=== PATIENT | male | born 1945 | race Caucasian/White ===

== ENCOUNTER → 2019-10-01 13:13 | Outpatient (BNVA) | payer MEDICARE, OTHER, SELFPAY | PROVIDERS: Family Provider Family Medicine; PCP Family Medicine; Visit Provider Nurse Practitioner Family | DX: R35.1 Nocturia (principal); R39.9 Unspecified symptoms and signs involving the genitourinary system | CPT/HCPCS: 81001 ==

== ENCOUNTER → 2019-10-15 10:34 | Outpatient (BNVA) | payer MEDICARE, OTHER, SELFPAY | PROVIDERS: Family Provider Family Medicine; PCP Family Medicine; Visit Provider Urology | DX: R35.1 Nocturia (principal); R39.9 Unspecified symptoms and signs involving the genitourinary system; R39.15 Urgency of urination | CPT/HCPCS: 81001 ==

== ENCOUNTER 2020-07-22 09:16 | Outpatient (RCR) | payer MEDICARE, OTHER, SELFPAY | END 2020-08-08 23:59 | disposition home or self-care (01) | LOC: SOT 09:16 | PROVIDERS: Family Provider Family Medicine; PCP Family Medicine; Referring Provider Family Medicine; Visit Provider Family Medicine | DX: S67.21XD Crushing injury of right hand, subsequent encounter (principal) | CPT/HCPCS: 97110; 97165; L3925 ==

== ENCOUNTER 2020-08-09 06:00 | Outpatient (RCR) | payer MEDICARE, OTHER, SELFPAY | END 2020-08-14 23:00 | disposition home or self-care (01) | LOC: SOT 06:00 | PROVIDERS: Family Provider Family Medicine; PCP Registered Nurse; Referring Provider Family Medicine; Visit Provider Family Medicine | DX: S67.21XD Crushing injury of right hand, subsequent encounter (principal); X58.XXXD Exposure to other specified factors, subsequent encounter | CPT/HCPCS: 97110 ==

== ENCOUNTER 2020-10-07 07:54 | Outpatient (CLI) | payer MEDICARE, OTHER, SELFPAY ==
[2020-10-07 08:14] VITALS: BMI 26.2
--- NOTE | 2020-10-07 08:14 | ECG_ITS ---
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 The perfusion scan will be documented separately. DATA: Baseline heart rate was 54 beats per minute. Baseline blood pressure was 155/87 millimeters of mercury. Target heart rate was 145. Maximum heart rate achieved was 73. which was 50 % of the predicted target heart rate. Maximum blood pressure was 155/89 millimeters of mercury. The reason for ending the test was completion of the protocol. The patient did not experience any symptoms. ELECTROCARDIOGRAM: BASELINE: Sinus bradycardia. Left axis. Right bundle branch block, otherwise, no ST-T changes suggestive of ischemia noted. No arrhythmia noted. EXERCISE: After Lexiscan injection, no ST-T changes suggestive of ischemic noted. No arrhythmia noted. CONCLUSION: Please note due to baseline abnormality of the EKG specificity and sensitivity of the EKG portion of LexiScan MIBI stress test will be low 1. EKG not suggestive of ischemia 2. Lexiscan injection unremarkable. 3. Perfusion scan will be documented separately. Electronically Signed On 10-09-2020 17:51:18 CDT by EMMA BRIZUELA [id number]
--- NOTE | 2020-10-07 08:15 | NMCV_ITS ---
NM demetrio perf SPECT r/s* [id number] Burt Marinelli Age: 75 Gender: M : 1945 Exam Date: 10/07/2020 08:15 Ordering Phys: Emma Brizuela MD ([email or web address]) Technologist: LEESA Montaño Exam Location: [facility] Indications: SHORTNESS OF BREATH, CHEST PAIN STRESS TEST Please [facility] separate [facility] for full findings IMAGE PROTOCOL Rest/Stress 1 Lexiscan Day Radiopharmaceutical Dose (mCi) Administration Site Administered by Rest: Tc-99m 10.7 IV LEESA Cervantes Sestamibi Stress:Tc-99m 32.6 IV LEESA Cervantes Sestamibi Rest: 07-Oct-2020 60 Discovery 630 Stress: 07-Oct-2020 30 Discovery 630 0.4mg Lexiscan. Images obtained in supine and prone position. SPECT RESULTS Technical Quality: Excellent Raw Data Analysis: Normal Image Corrections: No attenuation or motion correction applied Summed Stress Score: 0 Summed Rest Score: 0 Summed Difference Score: 0 PERFUSION FINDINGS SPECT images demonstrate homogeneous tracer distribution throughout the myocardium. FUNCTIONAL RESULTS (calculated via Gated SPECT) Stress Image LV EF (%): 64 Stress EDV (mL):114 TID: 0.95 Stress ESV (mL):41 Rest Image LV EF (%): 64 FUNCTIONAL FINDINGS: There is normal left ventricular systolic function. IMPRESSIONS Myocardial perfusion imaging is normal. EKG segment will be documented separately. Emma Brizuela MD (Electronically Signed) Final Date: 07 October 2020 19:43 S
[2020-10-07] MEDS: regadenoson 0.4 Mg/5 ml Syringe IVP (09:46)
[2020-10-07 10:20] VITALS: BP 131/75; PULSE 63
== END 2020-10-07 07:55 | disposition home or self-care (01) ==
LOC: CDL 07:58
PROVIDERS: PCP Family Medicine; Visit Provider Internal Medicine Cardiovascular Disease
DX: R07.9 Chest pain, unspecified (principal); R06.02 Shortness of breath
CPT/HCPCS: 78452; 93017; A9500; J2785

== ENCOUNTER 2020-11-18 13:48 | Outpatient (CLI) | payer MEDICARE, OTHER, SELFPAY ==
--- NOTE | 2020-11-18 14:18 | MR_ITS ---
WS: [id number] MRI LEFT KNEE HISTORY: LEFT KNEE PAIN, recent injury. COMPARISON: None available. Anterior cruciate ligament: Intact. Posterior cruciate ligament: Intact. Medial collateral ligament: Fluid on both sides of the MCL but no tear. Posterior lateral corner structures: Intact. Medial menisci: Horizontal tear extends to the intra-articular surface of the posterior meniscus. Lateral meniscus: Intact. Normal signal, size and shape. Extensor mechanism: Distal quadriceps tendon and patellar tendons are intact. Fluid and soft tissue: Large suprapatellar joint effusion. There is a large amount of soft tissue ade ma surrounding the knee. Small Ferris's cyst. Osseous and articular structures: Patellofemoral compartment: Focal cartilage defect at the patellar eminence. No edema or fracture. Medial compartment: Mild narrowing of the medial compartment. Mild diffuse thinning and loss of carti dalia with mild narrowing of the joint space and osteophytes. Small amount of edema at the base of the medial tibial spine. Lateral compartment: Moderate amount of marrow edema involving the tibial plateau. There is a vertica l fracture extending from the mid tibial plateau inferiorly to the tibial metadiaphysis. Multiple sma ll bone fragments along the tibial plateau. Mild depression involving the mid tibial plateau with a f ocal full-thickness defect in the cartilage at the site of the fracture. Cartilage defect is 11 mm in the central tibial plateau. There is a small amount of edema in the anterior femoral condyle. There is a small concave defect and loss of the normal bony cortex consistent with acute fracture. MR/MR knee LT wo con* [id number] IMPRESSION: 1. Acute fracture with mild depression involving the lateral tibial plateau. V ertical fracture extends to the metadiaphysis of the tibia. Multiple osseous fr agments along the tibial plateau and cartilage defects. 2. Additional cortical fracture involving the anterior lateral femoral condyle . 3. Large suprapatellar joint effusion with soft tissue edema surrounding the k nee. 4. Small Ferris's cyst. 5. Horizontal tear posterior horn medial meniscus.
== END 2020-11-18 13:49 | disposition home or self-care (01) ==
PROVIDERS: PCP Family Medicine; Visit Provider Family Medicine
DX: M25.562 Pain in left knee (principal); S83.242A Other tear of medial meniscus, current injury, left knee, initial encounter; X58.XXXA Exposure to other specified factors, initial encounter; M71.22 Synovial cyst of popliteal space [Baker], left knee; M25.462 Effusion, left knee
CPT/HCPCS: 73721

== ENCOUNTER 2020-11-21 15:31 | Outpatient (CLI) | payer MEDICARE, OTHER, SELFPAY ==
--- NOTE | 2020-11-21 15:30 | USCV_ITS ---
Burt Marinelli Age: 75 Gender: M : 1945 Exam Date: 11/21/2020 15:49 Ordering Phys: Miguel Cortés MD Technologist: Lalitha Hagen [place]am Location[place] [facility] [place] Indication: LLE EDEMA HISTORY: Fall November 10, 2020 resulting in left tibial fracture. LLE swelling. Patient is on plavix PROCEDURES: On the left side, the common femoral, superficial femoral, profunda femoral, popliteal, posterior tibial, greater saphenous veins, and the peroneal trunk were identified and interrogated in the standard fashion. . FINDINGS: Thrombus is noted in left popliteal and left peroneal veins. Near complete occlusion and reduced flow. The remainder of the LLE appears normal. CONCLUSIONS There is evidence of acute left popliteal and peroneal vein deep venous thrombosis. Report called to Dr. Cortés. Dr. Cortés directed patient to ED. Dr. Jennifer Lara DO (Electronically Signed) Final Date: 21 November 2020 16:26 S
== END 2020-11-21 15:32 | disposition home or self-care (01) ==
PROVIDERS: PCP Family Medicine; Visit Provider Orthopaedic Surgery
DX: R60.9 Edema, unspecified (principal)
CPT/HCPCS: 93971

== ENCOUNTER 2020-11-21 16:32 | Emergency (ER) | payer MEDICARE, OTHER, SELFPAY ==
[2020-11-21 17:06] VITALS: BP 169/99; PULSE 70; RESP 15; TEMP 36.8; O2SAT 97; BMI 24.8
--- NOTE | 2020-11-21 17:23 | ED_ITS ---
HPI - Extremity Problem General: Chief complaint: Extremity Injury, Lower Stated complaint: Post Injury thrombus Time Seen by Provider: 11/21/20 17:23 History of Present Illness: HPI Narrative: 75-year-old male patient comes in today with complaints of swelling and redness to the left lower leg. Patient has a proximal tibial fracture. Incident occurred at the first of the month when his dog collided against him causing him to injure himself. For the last 4 days patient is reporting increased pain and discomfort in the calf of his leg. Patient had ultrasound today that showed a DVT in the left lower extremity. Patient was referred to the ER by his primary care provider to initiate anticoagulant therapy. Complaint: extremity swelling Review of Systems General: Reports: 10 or more systems reviewed and unremarkable except in HPI and below Musc: Reports: other (Left lower extremity pain and swelling.) PFSH ED PFSH: Medical History CAD (coronary artery disease) Erectile dysfunction Family history of prostate cancer HTN (hypertension) Hyperlipidemia Lower urinary tract symptoms (LUTS) Nocturia Prinzmetal angina Testicular hypofunction Surgical History History of orchiectomy Hx of decompression of ulnar nerve Hx of knee surgery Family History Mother , at age 78- Cancer lung Father , at age 73 CHF (congestive heart failure) Myocardial infarction (lateral wall) Social History Smoking and tobacco status: never smoked Alcohol intake: current Alcohol intake frequency: 0-2 Drinks per Day Alcohol type: beer Marital status: Current occupational status: retired History of recent travel: No Physical Exam Const: COMMON NORMALS: no acute distress and patient oriented x3 GENERAL APPEARANCE: cooperative HENMT: COMMON NORMALS: normocephalic and Normal external nose present HEAD & SCALP: normal to inspection and normocephalic NOSE: Normal external nose present Eye: GENERAL EYE: appearance normal, both eyes and all related structures Neck/C-Spine: COMMON NORMALS: full ROM Chest: COMMONS NORMALS: normal inspection of the chest Resp: COMMON NORMALS: normal respiratory effort EFFORT & INSPECTION: Yes able to speak in complete sentences Cardio: COMMON NORMALS: regular rate and regular rhythm RATE: regular rate RHYTHM: regular rhythm GI: COMMON NORMALS: non-tender Back/Pelvis: COMMON NORMALS: thoracic and lumbar spine normal to inspection Extremity: NARRATIVE EXTREMITY EXAM: Ecchymosis and swelling is noted to the left lower extremity. Calf tenderness is noted to palpation. Neuro: COMMON NORMALS: patient oriented x3 and moves all extremities Psych: COMMON NORMALS: mental status grossly normal and cooperative Skin: COMMON NORMALS: no rashes or lesions noted GENERAL SKIN EXAM: no rashes or lesions noted Course Vital Signs: Vital signs: Vital Signs Temperature 98.3 F 11/21/20 17:06 Pulse Rate 70 11/21/20 17:06 Respiratory Rate 15 11/21/20 17:06 Blood Pressure 169/99 11/21/20 17:06 Pulse Oximetry 97 11/21/20 17:06 MDM - Extremity (Nontraumatic) MDM Narrative: Medical decision making narrative: 75-year-old male patient comes in today with pain to the left calf. Patient had a ultrasound for DVT performed earlier today and confirmed a popliteal DVT. Patient was sent here by his PCP for initiation of Eliquis. Patient appears well. Patient appears no acute distress. Differential diagnosis includes DVT, evaluation for renal dysfunction, fracture of the tibia. Laboratory values were unremarkable. Patient was started on Eliquis 10 mg twice a day for 7 days. Starter pack was written for the first 30 days. Patient reported understanding of care plan and need for follow-up or return to the ER. Lab Data: Labs: Lab Results 11/21/20 11/21/20 11/21/20 Range/Units 18:28 18:28 18:28 WBC 6.4 (4.0-10.0) 10^3/ uL RBC 4.28 (4.1-5.3) 10^6/u L Hgb 13.0 (11.7-16.6) g/dL Hct 40.5 L (42.0-52.0) % MCV 94.6 H (80-94) fl MCH 30.4 (28.0-34.0) pg MCHC 32.1 (30.0-36.0) g/dL RDW 13.4 (12.1-15.1) % Plt Count 236 (130-400) 10^3/c mm MPV 9.5 (7.4-10.4) fL Neut % (Auto) 56.9 % Lymph % (Auto) 27.3 % Henderson % (Auto) 13.6 % Eos % (Auto) 1.7 % Baso % (Auto) 0.3 % Neut # (Auto) 3.63 (1.8-7.7) 10^3/u L Lymph # (Auto) 1.7 (0.8-4.8) 10^3/u L Henderson # (Auto) 0.9 (0.2-0.9) 10^3/u L Eos # (Auto) 0.1 (0.0-0.8) 10^3/u L Baso # (Auto) 0.0 (0.0-0.1) 10^3/u L Nucleated RBC % (a uto) 0 % Nucleated RBCs # 0.0 /100WBC PT 13.10 (12.1-14.9) SECO NDS INR 0.96 (0.8-1.2) APTT 23.1 L (23.9-36.7) SECO NDS Sodium 139 (136-145) mmol/L Potassium 3.9 (3.5-5.1) mmol/L Chloride 104 (98-107) mmol/L Carbon Dioxide 27 (22-29) mmol/L Anion Gap 11.9 (5-19) BUN 26 H (8-23) mg/dL Creatinine 0.8 (0.7-1.2) mg/dL GFR Calculation Not Reportable Glucose 94 (65-115) mg/dL Calculated Osmolal ity 293 (285-295) mOsm/k g Calcium 9.3 (8.5-10.5) mg/dL Total Bilirubin 0.4 (0.15-1.2) mg/dL AST 20 (0-40) U/L ALT 18 (0-41) U/L Alkaline Phosphata se 78 (40-130) IU/L Total Protein 7.0 (6.6-8.7) g/dL Albumin 4.1 (3.5-5.2) g/dL Globulin 2.9 (1.3-4.6) g/dL Discharge Plan Discharge Patient Disposition: Home Clinical Impression: DVT (deep venous thrombosis) Qualifiers: DVT location: lower extremity Affected thrombotic vein of extremity: popliteal Chronicity: acute Laterality: left Qualified Code(s): I82.432 - Acute embolism and thrombosis of left popliteal vein Condition: Stable Prescriptions: New Eliquis DVT-PE Treat 30D Start 5 mg (74 tabs) tablets,dose pack See Rx Instructions .ROUTE .COMPLEX Qty: 74 RF: 0 No Action nitroglycerin [Nitrostat] 0.4 mg tablet, sublingual 0.4 mg SUBLINGUAL Q5M PRNRF: 0 diphenhydramine-acetaminophen [Tylenol PM Extra Strength] 25-500 mg tablet 1 tab PO .at bedtime PRNRF: 0 Citrucel 500 mg tablet 500 mg PO DAILY RF: 0 aspirin [Adult Aspirin Regimen] 81 mg tablet,delayed release (DR/EC) 81 mg PO DAILY RF: 0 atorvastatin [Lipitor] 80 mg tablet 80 mg PO DAILY Qty: 90 RF: 4 ezetimibe [Zetia] 10 mg tablet 10 mg PO DAILY Qty: 90 RF: 4 cholecalciferol (vitamin D3) 125 mcg (5,000 unit) capsule 125 mcg PO DAILY RF: 0 amlodipine 10 mg tablet 10 mg PO .HS Qty: 30 RF: 6 isosorbide mononitrate 30 mg tablet extended release 24 hr 60 mg PO DIRECTED RF: 0 pantoprazole 20 mg tablet,delayed release (DR/EC) 20 mg PO DAILY RF: 0 clopidogrel [Plavix] 75 mg tablet 75 mg PO DAILY Qty: 90 RF: 3 levothyroxine [Synthroid] 50 mcg tablet 75 mcg PO DAILY 7 Days Qty: 14 RF: 0 Discharge Orders: Discharge ED (Routine); Ordered 11/21/20 Ordered By: Nick Brito Referrals: Carl Palacios MD [Primary Care Provider] - Discharge Diet: Usual diet Discharge Activity: Increase activity as tolerated Patient Instructions: Opioid Safety Activity Restrictions/Additional Instructions: Hold Plavix. Take Eliquis as directed. Follow-up with primary care in 1 week for recheck. Return to the ER for chest pain or shortness of breath, or new concerns. Coding Level of Care Code ED Correctional Captain for Luis Enrique Fwd Exam Comprehensive
--- NOTE | 2020-11-21 18:28 | PC.NURSE ---
venipuncture x 2. unsuccesful. lab called for blood draw.
[2020-11-21 18:35] LABS: Basophils % 0.3 %; Eosinophils # 0.1 10^3/uL (0.0-0.8); Eosinophils % 1.7 %; Hematocrit 40.5 % (42.0-52.0); Lymphocytes # 1.7 10^3/uL (0.8-4.8); Lymphocytes % 27.3 %; Mean Corpuscular HGB Conc 32.1 g/dL (30.0-36.0); Mean Corpuscular Hemoglobin 30.4 pg (28.0-34.0); Mean Corpuscular Volume 94.6 fl (80-94); Mean Platelet Volume 9.5 fL (7.4-10.4); Monocytes # 0.9 10^3/uL (0.2-0.9); Monocytes % 13.6 %; Neutrophils # 3.63 10^3/uL (1.8-7.7); Neutrophils % 56.9 %; Nucleated Red Blood Cells % 0 %; Platelet Count 236 10^3/cmm (130-400); Red Blood Count 4.28 10^6/uL (4.1-5.3); Red Cell Distribution Width 13.4 % (12.1-15.1); White Blood Count 6.4 10^3/uL (4.0-10.0)
[2020-11-21 18:47] LABS: INR 0.96 (0.8-1.2)
[2020-11-21 18:48] LABS: Partial Thromboplastin Time 23.1 SECONDS (23.9-36.7)
[2020-11-21 19:14] LABS: Alanine Aminotransferase 18 U/L (0-41); Albumin Level 4.1 g/dL (3.5-5.2); Alkaline Phosphatase 78 IU/L (40-130); Anion Gap 11.9 (5-19); Aspartate Amino Transferase 20 U/L (0-40); Blood Urea Nitrogen 26 mg/dL (8-23); Calcium 9.3 mg/dL (8.5-10.5); Carbon Dioxide 27 mmol/L (22-29); Chloride 104 mmol/L (98-107); Globulin 2.9 g/dL (1.3-4.6); Glucose 94 mg/dL (65-115); Osmolality Calculated 293 mOsm/kg (285-295); Potassium 3.9 mmol/L (3.5-5.1); Sodium 139 mmol/L (136-145); Total Bilirubin 0.4 mg/dL (0.15-1.2)
[2020-11-21] MEDS: apixaban 5 mg Tablet 10 MG PO (19:34)
== END 2020-11-21 19:41 | disposition home or self-care (01) ==
PROVIDERS: Emergency Provider Nurse Practitioner Family; PCP Family Medicine
DX: I82.432 Acute embolism and thrombosis of left popliteal vein (principal); I25.10 Atherosclerotic heart disease of native coronary artery without angina pectoris; I10 Essential (primary) hypertension; E78.5 Hyperlipidemia, unspecified; Z79.82 Long term (current) use of aspirin; R60.9 Edema, unspecified
CPT/HCPCS: 36415; 80053; 85025; 85610; 85730; 93971; 99283

== ENCOUNTER 2020-12-09 06:00 | Outpatient (RCR) | payer MEDICARE, OTHER, SELFPAY | END 2020-12-09 23:59 | disposition home or self-care (01) | LOC: SPT 06:00 | PROVIDERS: PCP Registered Nurse; Referring Provider Orthopaedic Surgery; Visit Provider Orthopaedic Surgery | DX: S82.123D Displaced fracture of lateral condyle of unspecified tibia, subsequent encounter for closed fracture with routine healing (principal); X58.XXXD Exposure to other specified factors, subsequent encounter | CPT/HCPCS: 97110; 97162 ==

== ENCOUNTER 2020-12-10 06:00 | Outpatient (RCR) | payer MEDICARE, OTHER, SELFPAY | END 2021-01-08 23:59 | disposition home or self-care (01) | LOC: SPT 06:00 | PROVIDERS: PCP Registered Nurse; Referring Provider Orthopaedic Surgery; Visit Provider Orthopaedic Surgery | DX: S82.123D Displaced fracture of lateral condyle of unspecified tibia, subsequent encounter for closed fracture with routine healing (principal); X58.XXXD Exposure to other specified factors, subsequent encounter; R26.89 Other abnormalities of gait and mobility | CPT/HCPCS: 97110; 97150 ==

== ENCOUNTER 2021-01-09 06:00 | Outpatient (RCR) | payer MEDICARE, OTHER, SELFPAY | END 2021-02-08 23:59 | disposition home or self-care (01) | LOC: SPT 06:00 | PROVIDERS: PCP Registered Nurse; Referring Provider Orthopaedic Surgery; Visit Provider Orthopaedic Surgery | DX: Z47.89 Encounter for other orthopedic aftercare (principal); S82.123D Displaced fracture of lateral condyle of unspecified tibia, subsequent encounter for closed fracture with routine healing | CPT/HCPCS: 97110; 97164 ==

== ENCOUNTER 2021-05-16 16:56 | Emergency (ER) | payer MEDICARE, OTHER, SELFPAY ==
[2021-05-16 18:13] VITALS: BP 180/81; PULSE 99; RESP 16; TEMP 36.8; O2SAT 99; BMI 25.0
--- NOTE | 2021-05-16 18:38 | XRR_ITS ---
PROCEDURE INFORMATION: Exam: XR Chest Exam date and time: 05/16/2021 6:38 PM Age: 75 years old Clinical indication: Other: Dizziness TECHNIQUE: Imaging protocol: XR of the chest. Views: 1 view. COMPARISON: CR Chest 1 [place] [id number] 04/23/2016 1:39 PM FINDINGS: Lungs: Unremarkable. No consolidation. Pleural spaces: Unremarkable. No pleural effusion. No pneumothorax. Heart/Mediastinum: Unremarkable. No cardiomegaly. Bones/joints: Unremarkable. XR/XR chest 1V portable [id number] IMPRESSION: No acute findings.
--- NOTE | 2021-05-16 18:38 | CTR_ITS ---
PROCEDURE INFORMATION: Exam: CT Head Without Contrast Exam date and time: 05/16/2021 6:38 PM Age: 75 years old Clinical indication: Patient HX: C/O dizziness TECHNIQUE: Imaging protocol: Computed tomography of the head without contrast. Radiation optimization: All CT scans at this facility use at least one of these dose optimization techniques: automated exposure control; mA and/or kV adjustment per patient size (includes targeted exams where dose is matched to clinical indication); or iterative reconstruction. COMPARISON: MR head wo con* [id number] 09/20/2016 1:26 PM RADIATION DOSE METRICS: Total DLP (mGy-cm): 898.12 FINDINGS: Brain: Unremarkable. No hemorrhage. Unremarkable white matter. No mass effect. Small area pre-existing gliosis in the right anterior basal ganglia stable from comparison. Cerebral ventricles: No ventriculomegaly. Paranasal sinuses: Visualized sinuses are unremarkable. No fluid levels. Mastoid air cells: Visualized mastoid air cells are well aerated. Bones/joints: Unremarkable. No acute fracture. Soft tissues: Unremarkable. CT/CT head wo con* [id number] IMPRESSION: No acute intracranial abnormality.
--- NOTE | 2021-05-16 18:39 | ECG_ITS ---
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 Measurements Intervals [place] Rate: 57 P: -2 OR: 169 QRS: -35 QRSD: 145 T: 36 QT: 465 QTc: 454 Interpretive Statements SINUS BRADYCARDIA LEFT AXIS DEVIATION [QRS AXIS < -30] RIGHT BUNDLE BRANCH BLOCK [120+ ms QRS DURATION, UPRIGHT V1, 40+ ms S IN I/aVL/V4/V5/V6] Compared to ECG 04/23/2016 12:40:20 Left-axis deviation now present Right bundle-branch block now present Electronically Signed On 05-17-2021 17:00:34 VICE CHANCELLOR by Jessie Murray M.D. [id number]
--- NOTE | 2021-05-16 18:42 | ED_ITS ---
HPI - Dizziness General: Chief Complaint: Dizziness Stated Complaint: high bp; sweaty palms, lightheaded Time Seen by Provider: 05/16/21 18:22 Source: patient History of Present Illness: HPI Narrative: 75-year-old male with a history of coronary disease. Last intervention was 5 to 6 years ago. He presents after a very brief episode of syncope or possibly near syncope after getting out of bed this morning. He says he felt fine after this most of the day, but around 4 or 4:30 PM, he began to feel dizzy, again when getting up. His blood pressure was quite high, in the 190s systolic which is not normal for him. He denies any chest pain, shortness of breath. He denies any neck or back pain. He does report a mild headache after taking 2 nitroglycerin to lower his blood pressure, but not before. He states that his palms were sweaty. He was a bit dizzy in triage, but lying in the bed, he has not had any more symptoms. MD elicited complaint: dizziness and near syncope Pertinent past history: other Onset (ago): hour(s) Timing: gradual onset Severity: moderate Description: lightheadedness, off-balance and near-syncope History of similar symptoms: Yes (Years ago) Exacerbating factors: movement/ambulation and change in body position Relieving factors: remaining still Associated symptoms: Denies change in hearing, chest pain, chills, cough, fevers/chills, headache(s), nausea, short of breath, vomiting or weakness Associated neuro symptoms: Deny confusion, difficulty speaking, dysphagia, diplopia, extremity weakness, facial numbness, facial weakness, gait changes, numbness in extremities or visual changes Review of Systems Const: Denies: chills ENMT: Denies: change in hearing Card: Denies: chest pain GI: Denies: nausea, vomiting or dysphagia Musc: Denies: neck pain or back pain Skin/Breast: Denies: rash Neuro: Denies: headache(s), numbness in extremities or confusion PFSH ED PFSH: Medical History CAD (coronary artery disease) Dvt femoral (deep venous thrombosis) Erectile dysfunction Family history of prostate cancer HTN (hypertension) Hyperlipidemia Lower urinary tract symptoms (LUTS) Nocturia Prinzmetal angina Testicular hypofunction Surgical History History of orchiectomy Hx of decompression of ulnar nerve Hx of knee surgery Family History Mother , at age 78- Cancer lung Father , at age 73 CHF (congestive heart failure) Myocardial infarction (lateral wall) Social History Smoking and tobacco status: never smoked Alcohol intake: current Alcohol intake frequency: 0-2 Drinks per Day Alcohol type: beer Marital status: Current occupational status: retired History of recent travel: No Physical Exam Const: COMMON NORMALS: patient oriented x3 EXAM LIMITATIONS: no altered mental status GENERAL APPEARANCE: cooperative and comfortable; not frail appearing HENMT: COMMON NORMALS: normocephalic, atraumatic and Normal external nose present HEAD & SCALP: normocephalic and atraumatic FACE & SINUS: normal facial exam NOSE: Normal external nose present MOUTH: Normal oral and palatal mucosa present THROAT: posterior oropharynx normal Eye: COMMON NORMALS: Equal, round and reactive pupils present and EOMs intact bilaterally GENERAL EYE: appearance normal, both eyes and all related structures VISUAL FELIPE: No peripheral vision loss PUPIL: Yes Equal, round and reactive pupils present Chest: COMMONS NORMALS: normal inspection of the chest Resp: COMMON NORMALS: normal respiratory effort, No use of accessory muscles and clear to auscultation bilaterally AUSCULTATION: clear to auscultation bilaterally Cardio: COMMON NORMALS: regular rate and regular rhythm RATE: regular rate RHYTHM: regular rhythm GI: COMMON NORMALS: Normal to inspection, nondistended, normoactive bowel so unds present Neuro: CHACHA COMA SCALE: document GCS findings Chacha coma scale eye opening: Spontaneous Chacha coma scale verbal response: Orientated [place] coma scale motor response: Obey commands Chacha coma scale total score: 15 COMMON NORMALS: patient oriented x3 COORDINATION/BALANCE: [id number] test normal and [id number] test normal SPEECH: speech normal GAIT: Yes Unable to assess gait SENSORY EXAM: Yes extremities (Normal) MOTOR EXAM: Pronator motor function not present COORDINATION: [id number] test normal and [id number] test normal Course Vital Signs: Vital signs: Vital Signs Temperature 99.0 F 05/16/21 19:33 Pulse Rate 58 L 05/16/21 19:33 Respiratory Rate 15 05/16/21 19:33 Blood Pressure 167/90 05/16/21 19:33 Pulse Oximetry 99 05/16/21 19:33 MDM - Dizziness Medical Decision Making 75-year-old gentleman presents hypertensive with periods of dizziness and near syncope. His white blood cell count is 7.8. Hemoglobin 13.5. His BMP is normal. His troponin was normal and remained so. His D-dimer is negative. Head CT reveals some gliosis that appears stable, with no acute changes. With improvement in blood pressure, his symptoms improved as well. We will treat him for symptomatic hypertension. His NIH stroke scale is 0. I see no evidence of acute cerebellar stroke on exam. Lab Data : 05/16/21 18:55 05/16/21 18:55 Radiology Impressions Chest X-Ray 05/16/21 18:38 IMPRESSION: No acute findings. Head CT 05/16/21 18:38 IMPRESSION: No acute intracranial abnormality. Laboratory Results WBC 7.8 10^3/uL (4.0-10.0) 05/16/21 18:55 RBC 4.54 10^6/uL (4.1-5.3) 05/16/21 18:55 Hgb 13.5 g/dL (11.7-16.6) 05/16/21 18:55 Hct 42.8 % (42.0-52.0) 05/16/21 18:55 MCV 94.3 fl (80-94) H 05/16/21 18:55 MCH 29.7 pg (28.0-34.0) 05/16/21 18:55 MCHC 31.5 g/dL (30.0-36.0) 05/16/21 18:55 RDW 13.4 % (12.1-15.1) 05/16/21 18:55 Plt Count 210 10^3/cmm (130-400) 05/16/21 18:55 MPV 9.9 fL (7.4-10.4) 05/16/21 18:55 Neut % (Auto) 68.9 % 05/16/21 18:55 Lymph % (Auto) 17.6 % 05/16/21 18:55 Sutter % (Auto) 11.7 % 05/16/21 18:55 Eos % (Auto) 1.4 % 05/16/21 18:55 Baso % (Auto) 0.3 % 05/16/21 18:55 Neut # (Auto) 5.38 10^3/uL (1.8-7.7) 05/16/21 18:55 Lymph # (Auto) 1.4 10^3/uL (0.8-4.8) 05/16/21 18:55 Sutter # (Auto) 0.9 10^3/uL (0.2-0.9) 05/16/21 18:55 Eos # (Auto) 0.1 10^3/uL (0.0-0.8) 05/16/21 18:55 Baso # (Auto) 0.0 10^3/uL (0.0-0.1) 05/16/21 18:55 Nucleated RBC % (auto) 0 % 05/16/21 18: Nucleated RBCs # 0.0 /100WBC 05/16/21 18:55 D-Dimer 0.37 ug/mIFEU (0-0.59) 05/16/21 21:02 Sodium 143 mmol/L (136-145) 05/16/21 18:55 Potassium 4.3 mmol/L (3.5-5.1) 05/16/21 18:55 Chloride 106 mmol/L (98-107) 05/16/21 18:55 Carbon Dioxide 23 mmol/L (22-29) 05/16/21 18:55 Anion Gap 18.3 (5-19) 05/16/21 18:55 BUN 14 mg/dL (8-23) 05/16/21 18:55 Creatinine 0.9 mg/dL (0.7-1.2) 05/16/21 18:55 GFR Calculation Not Reportable 05/16/21 18:55 Glucose 88 mg/dL (65-115) 05/16/21 18:55 Calculated Osmolality 296 mOsm/kg (285-295) H 05/16/21 18:55 Lactate 0.7 mmol/L (0.5-2.2) 05/16/21 18:55 Calcium 9.5 mg/dL (8.5-10.5) 05/16/21 18:55 Total Bilirubin 0.5 mg/dL (0.15-1.2) 05/16/21 18:55 AST 20 U/L (0-40) 05/16/21 18:55 ALT 17 U/L (0-41) 05/16/21 18:55 Alkaline Phosphatase 96 IU/L (40-130) 05/16/21 18:55 Creatine Kinase 74 U/L (39-308) 05/16/21 18:55 Troponin T Baseline 13 ng/L (0-15) 05/16/21 18:55 Troponin T 120 Minute 10.97 ng/L (0-15) 05/16/21 20:21 Delta Troponin T Not Reportable 05/16/21 20:21 C-Reactive Protein 7.0 mg/L (0.0-4.9) H 05/16/21 18:55 NT-Pro-B Natriuret Pep 195 pg/mL (0-450) 05/16/21 18:55 Total Protein 6.5 g/dL (6.6-8.7) L 05/16/21 18:55 Albumin 4.3 g/dL (3.5-5.2) 05/16/21 18:55 Globulin 2.2 g/dL (1.3-4.6) 05/16/21 18:55 Procalcitonin 0.03 ng/mL (0-0.5) 05/16/21 18:55 Urine Color Yellow (Yellow) 05/16/21 17:05 Urine Appearance Clear (CLEAR) 05/16/21 17:05 Urine pH 5 (5-7) 05/16/21 17:05 Ur Specific Eldred 1.015 (1.005-1.030) 05/16/21 17:05 Urine Protein Neg (Negative) 05/16/21 17:05 Urine Glucose (UA) Norm (Normal) 05/16/21 17:05 Urine Ketones Negative (Negative) 05/16/21 17:05 Urine Blood 3+ (Negative) H 05/16/21 17:05 Urine Nitrate Negative (Negative) 05/16/21 17:05 Urine Bilirubin Neg (Negative) 05/16/21 17:05 Urine Urobilinogen Norm mg/dL (Negative) 05/16/21 17:05 Ur Leukocyte Esterase Negative (Negative) 05/16/21 17:05 Urine RBC 15-25 /hpf (0-2) H 05/16/21 17:05 Urine WBC 0-4 /hpf (0-5) H 05/16/21 17:05 Ur Squamous Epith Cells 0-4 /hpf (0-5) H 05/16/21 17:05 Amorphous Sediment Not Reportable 05/16/21 17:05 Urine Bacteria Trace /hpf (NONE) 05/16/21 17:05 Discharge Plan Discharge Patient Disposition: Home Clinical Impression: Hypertensive urgency Condition: Stable Prescriptions: New amlodipine 10 mg tablet 10 mg PO DAILY Qty: 30 0RF No Action nitroglycerin [Nitrostat] 0.4 mg tablet, sublingual 0.4 mg SUBLINGUAL Q5M PRN0RF Rx Instructions: do not exceed 3 doses per episode diphenhydramine-acetaminophen [Tylenol PM Extra Strength] 25-500 mg tablet 1 tab PO .at bedtime PRN0RF Rx Instructions: administer while awake Citrucel 500 mg tablet 500 mg PO DAILY 0RF atorvastatin [Lipitor] 80 mg tablet 80 mg PO DAILY Qty: 90 4RF ezetimibe [Zetia] 10 mg tablet 10 mg PO DAILY Qty: 90 4RF cholecalciferol (vitamin D3) 125 mcg (5,000 unit) capsule 125 mcg PO DAILY 0RF isosorbide mononitrate 30 mg tablet extended release 24 hr 30 mg PO TID 0RF pantoprazole 20 mg tablet,delayed release (DR/EC) 20 mg PO DAILY 0RF Eliquis DVT-PE Treat 30D Start 5 mg (74 tabs) tablets,dose pack 5 mg PO BID 90 Days Qty: 180 3RF Rx Instructions: 340B levothyroxine [Synthroid] 50 mcg tablet 75 mcg PO DAILY 7 Days Qty: 14 0RF clopidogrel 75 mg tablet 75 mg PO DAILY Qty: 90 4RF Discharge Orders: Discharge ED (Routine); Ordered 05/16/21 Ordered By: Adolfo Cabrera Referrals: Emma Brizuela MD [Physician] - 4-7 days Carl Palacios MD [Primary Care Provider] - 1-3 days Patient Instructions: Hypertension (ED) Activity Restrictions/Additional Instructions: Return for worsening dizziness despite treatment, chest pain or discomfort, mental status changes, headache, trouble with speech or weakness, any other concerning symptoms. Check your blood pressure twice daily and record numbers for your physician. If your blood pressure is staying above 150 systolic (the top number), then take the medication you were prescribed. Coding Level of Care Code ED Colorer H[employer] Skins for Luis Enrique Fwakua Exam Comprehensive
[2021-05-16 19:06] LABS: Basophils % 0.3 %; Eosinophils # 0.1 10^3/uL (0.0-0.8); Eosinophils % 1.4 %; Hematocrit 42.8 % (42.0-52.0); Hemoglobin 13.5 g/dL (11.7-16.6); Lymphocytes # 1.4 10^3/uL (0.8-4.8); Lymphocytes % 17.6 %; Mean Corpuscular HGB Conc 31.5 g/dL (30.0-36.0); Mean Corpuscular Hemoglobin 29.7 pg (28.0-34.0); Mean Corpuscular Volume 94.3 fl (80-94); Mean Platelet Volume 9.9 fL (7.4-10.4); Monocytes # 0.9 10^3/uL (0.2-0.9); Monocytes % 11.7 %; Neutrophils # 5.38 10^3/uL (1.8-7.7); Neutrophils % 68.9 %; Nucleated Red Blood Cells % 0 %; Platelet Count 210 10^3/cmm (130-400); Red Blood Count 4.54 10^6/uL (4.1-5.3); Red Cell Distribution Width 13.4 % (12.1-15.1); White Blood Count 7.8 10^3/uL (4.0-10.0)
[2021-05-16 19:19] LABS: Lactate (Lactic Acid level) 0.7 mmol/L (0.5-2.2)
[2021-05-16 19:28] LABS: Troponin(5th) Baseline 13 ng/L (0-15)
[2021-05-16 19:33] VITALS: BP 167/90; PULSE 58; RESP 15; TEMP 37.2; O2SAT 99
[2021-05-16 19:35] LABS: NT Pro B Type Natriuretic Pept 195 pg/mL (0-450); Procalcitonin 0.03 ng/mL (0-0.5)
[2021-05-16 19:46] LABS: Alanine Aminotransferase 17 U/L (0-41); Albumin Level 4.3 g/dL (3.5-5.2); Alkaline Phosphatase 96 IU/L (40-130); Anion Gap 18.3 (5-19); Aspartate Amino Transferase 20 U/L (0-40); Blood Urea Nitrogen 14 mg/dL (8-23); Calcium 9.5 mg/dL (8.5-10.5); Carbon Dioxide 23 mmol/L (22-29); Chloride 106 mmol/L (98-107); Creatine Phosphokinase 74 U/L (39-308); Globulin 2.2 g/dL (1.3-4.6); Glucose 88 mg/dL (65-115); Osmolality Calculated 296 mOsm/kg (285-295); Potassium 4.3 mmol/L (3.5-5.1); Sodium 143 mmol/L (136-145); Total Bilirubin 0.5 mg/dL (0.15-1.2); Total Protein 6.5 g/dL (6.6-8.7)
[2021-05-16] MEDS: enalaprilat 1.25 mg/mL Inj IVP (19:48)
[2021-05-16 20:27] LABS: Add Urine Microscopic? YES; Bilirubin Urine Neg (Negative); Blood Urine 3+ (Negative); Glucose Urine UA Norm (Normal); Ketones Urine Negative (Negative); Leukocyte Esterase Urine Negative (Negative); Nitrate Urine Negative (Negative); Protein Urine Neg (Negative); Specific Gravity, Urine 1.015 (1.005-1.030); Urine Appearance Clear (CLEAR); Urine Color Yellow (Yellow); Urobilinogen Urine Norm (Negative); pH Urine 5 (5-7)
[2021-05-16 20:34] LABS: Add Urine Culture? Yes; Bacteria Urine TRACE /hpf; RBC Urine 15-25 /hpf (0-2); Squamous Epithelial Cell Urine 0-4 /hpf (0-5); WBC Urine 0-4 /hpf (0-5)
--- NOTE | 2021-05-16 20:39 | ECG_ITS ---
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 Measurements Intervals [place] Rate: 55 P: -4 RI: 159 QRS: -46 QRSD: 142 T: 4 QT: 441 QTc: 424 Interpretive Statements SINUS BRADYCARDIA RIGHT BUNDLE BRANCH BLOCK [120+ ms QRS DURATION, UPRIGHT V1, 40+ ms S IN I/aVL/V4/V5/V6] LEFT ANTERIOR FASCICULAR BLOCK [QRS AXIS <= -45, QR IN I, RS IN II] Compared to ECG 05/16/2021 18:28:32 Left anterior fascicular block now present Left-axis deviation no longer present Electronically Signed On 05-17-2021 17:05:32 JAVA SECURITY ARCHITECT by Jessie Murray M.D. [id number]
[2021-05-16 21:01] LABS: Troponin 5 2HR 10.97 ng/L (0-15)
[2021-05-16] MEDS: amlodipine 10 mg Tablet PO (21:32)
[2021-05-16 21:50] LABS: D Dimer 0.37 ug/mIFEU (0-0.59)
== END 2021-05-16 22:19 | disposition home or self-care (01) ==
PROVIDERS: Emergency Provider Emergency Medicine; PCP Family Medicine
DX: I16.0 Hypertensive urgency (principal); Z79.01 Long term (current) use of anticoagulants; Z79.02 Long term (current) use of antithrombotics/antiplatelets; I25.10 Atherosclerotic heart disease of native coronary artery without angina pectoris; I10 Essential (primary) hypertension; E78.5 Hyperlipidemia, unspecified
CPT/HCPCS: 70450; 71045; 80053; 81001; 82550; 83605; 83880; 84145; 84484; 85025; 85378; 86140; 87086; 93005; 96374; 99284; J3490

== ENCOUNTER 2021-06-19 05:59 | Outpatient (CLI) | payer MEDICARE, OTHER, SELFPAY ==
--- NOTE | 2021-06-19 06:15 | USCV_ITS ---
Burt Marinelli Age: 75 Gender: M : 1945 Exam Date: 06/19/2021 06:10 Ordering Phys: Syd Chowdhury M.D ([email or web address]) Technologist: BRUCE [place] [facility] [place]: dizziness and syncope Risk Factors: Previous Vascular Surgery: Right Brachial BP: / Left Brachial BP: / Right Left Velocity (cm/s) Spectral Plaque Velocity (cm/s) Spectral Plaque Syst/Diast Broadening Syst/Diast Broadening 119.10/16.50 Prox CCA 95.50 / 15.90 88.20/ 15.40 Mid CCA 85.40 / 12.00 82.70/ 18.70 Distal CCA 75.20 / 19.70 54.00/ 13.20 Prox ICA 56.70 / 14.00 67.60/ 21.80 Mid ICA 69.40 / 20.20 65.90/ 18.90 Distal ICA 50.80 / 15.70 90.30 ECA 83.70 0.57 ICA/CCA 0.73 Antegrade Vertebral Antegrade 40.40/ 11.70 cm/s 42.70/ 17.10 cm/s Tri Subclavian Tri 96.60 95.10 FINDINGS Comparison: none available. No significant elevation of systolic or diastolic velocities. Waveforms are normal. No significant amount of calcified plaque or intimal thickening identified. Antegrade vertebral arteries. CONCLUSIONS Normal carotid doppler ultrasound. Dr. Jennifer Lara DO (Electronically Signed) Final Date: 19 June 2021 07:47 S
== END 2021-06-19 06:00 | disposition home or self-care (01) ==
PROVIDERS: PCP Family Medicine; Visit Provider Internal Medicine
DX: R42 Dizziness and giddiness (principal); R55 Syncope and collapse
CPT/HCPCS: 93880

== ENCOUNTER → 2021-07-17 11:07 | Outpatient (BNVA) | payer MEDICARE, OTHER, SELFPAY | PROVIDERS: PCP Family Medicine; Visit Provider Internal Medicine | DX: I25.10 Atherosclerotic heart disease of native coronary artery without angina pectoris (principal); I10 Essential (primary) hypertension; I82.412 Acute embolism and thrombosis of left femoral vein | CPT/HCPCS: 99213 ==

== ENCOUNTER → 2021-08-24 14:59 | Outpatient (BNVA) | payer MEDICARE, OTHER, SELFPAY | PROVIDERS: PCP Registered Nurse; Visit Provider Internal Medicine | DX: I25.10 Atherosclerotic heart disease of native coronary artery without angina pectoris (principal); I10 Essential (primary) hypertension; I82.412 Acute embolism and thrombosis of left femoral vein | CPT/HCPCS: 99214 ==

== ENCOUNTER 2021-09-17 07:01 | Outpatient (CLI) | payer MEDICARE, OTHER, SELFPAY ==
--- NOTE | 2021-09-17 07:15 | USCV_ITS ---
Burt Marinelli Age: 76 Gender: M : 1945 Exam Date: 09/17/2021 07:06 Ordering Phys: Syd Chowdhury M.D ([email or web address]) Technologist: AMELIE Exam Location: [facility] – [place] Indication: DVT, femoral HISTORY: Lower extremity swelling. PROCEDURES: Venous duplex imaging was performed in bilateral lower extremities. The following venous structures were evaluated: common femoral vein, profunda vein, proximal portion of the greater saphenous vein, superficial femoral vein, and the popliteal vein. In addition, the posterior tibial and peroneal trunk were evaluated. FINDINGS: Normal 2-D Doppler and augmentation and compressibility throughout the lower extremity venous structures. Additional imaging through the proximal calf veins also reveals no thrombus. Limited evaluation of the greater saphenous vein is patent with no thrombus.. CONCLUSIONS No evidence of right lower extremity DVT. No evidence of left lower extremity DVT. Parvez Sanchez MD (Electronically Signed) Final Date: 17 September 2021 08:49 S
== END 2021-09-17 07:02 | disposition home or self-care (01) ==
LOC: RAD 07:02
PROVIDERS: PCP Family Medicine; Visit Provider Internal Medicine
DX: I82.412 Acute embolism and thrombosis of left femoral vein (principal)
CPT/HCPCS: 93970

== ENCOUNTER 2021-11-18 07:35 | Outpatient (CLI) | payer MEDICARE, OTHER, SELFPAY ==
--- NOTE | 2021-11-18 07:42 | MM_ITS ---
WS: [id number] DIAGNOSTIC BILATERAL DIGITAL BREAST TOMOSYNTHESIS MAMMOGRAPHY WITH CAD LEFT breast ultrasound, limited. HISTORY: LT BREAST MASS COMPARISON: None available. TECHNIQUE: Bilateral craniocaudad, mediolateral oblique, and mediolateral views are submitted with to mosbutchesis and SM. Spot compression LEFT MLO. Computer aided detection utilized. Breast composition: The breasts are almost entirely fatty. There is some very mild fibroglandular pro minence posterior to the nipples. No discrete mass identified. No adenopathy noted towards the axilla . Soft tissue is nearly symmetric within each breast. LEFT breast ultrasound, limited. Ultrasound directed to the nearly the entire breast in the area of pain. No soft tissue mass is ident ified. No increased vascularity. No significant lymph nodes. MM/[id number] IMPRESSION: BI-RADS: 2-Benign FOLLOW UP: See Report No mammographic or ultrasound abnormality noted within the RIGHT breast in this male patient.
== END 2021-11-18 07:36 | disposition home or self-care (01) ==
LOC: RAD 07:39
PROVIDERS: PCP Family Medicine; Visit Provider Family Medicine
DX: N63.20 Unspecified lump in the left breast, unspecified quadrant (principal)
CPT/HCPCS: 76642; 77062

== ENCOUNTER → 2022-09-07 10:45 | Outpatient (BNVA) | payer MEDICARE, OTHER, SELFPAY | PROVIDERS: PCP Family Medicine; Visit Provider Internal Medicine Cardiovascular Disease | DX: I25.10 Atherosclerotic heart disease of native coronary artery without angina pectoris (principal); I10 Essential (primary) hypertension; E78.2 Mixed hyperlipidemia; E03.9 Hypothyroidism, unspecified | CPT/HCPCS: 99214 ==

== ENCOUNTER → 2022-10-07 08:44 | Outpatient (BNVA) | payer MEDICARE, OTHER, SELFPAY | PROVIDERS: PCP Family Medicine; Visit Provider Urology | DX: R39.9 Unspecified symptoms and signs involving the genitourinary system; R35.1 Nocturia | CPT/HCPCS: 81003; 99213 ==

== ENCOUNTER → 2022-11-23 09:12 | Outpatient (BNVA) | payer MEDICARE, OTHER, SELFPAY | PROVIDERS: PCP Family Medicine; Visit Provider Student in an Organized Health Care Education/Training Program | DX: M75.41 Impingement syndrome of right shoulder; S43.431A Superior glenoid labrum lesion of right shoulder, initial encounter; X58.XXXA Exposure to other specified factors, initial encounter | CPT/HCPCS: 73030; 99204 ==

== ENCOUNTER → 2022-11-23 09:52 | Outpatient (BNVA) | payer MEDICARE, OTHER, SELFPAY | PROVIDERS: PCP Family Medicine; Visit Provider Student in an Organized Health Care Education/Training Program | DX: S43.431A Superior glenoid labrum lesion of right shoulder, initial encounter; X58.XXXA Exposure to other specified factors, initial encounter; M75.41 Impingement syndrome of right shoulder | CPT/HCPCS: 73030 ==

== ENCOUNTER 2022-11-25 14:08 | Outpatient (CLI) | payer MEDICARE, OTHER, SELFPAY ==
--- NOTE | 2022-11-25 14:16 | MR_ITS ---
WS: [id number] MRI RIGHT SHOULDER NONCONTRAST TECHNIQUE: Sagittal T2, coronal T1, T2 and proton density imaging. Axial gradient PDE imaging. CLINICAL INFORMATION: labral tear COMPARISON: None. FINDINGS: Arthrogram not performed. Patient currently on Plavix. Options discussed with patient, and arthrogram could be performed if clinically indicated after Plavix held for 3 to 5 days. 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 Slight subacromial spurring. Imp ingement on the distal supraspinatus. High-grade tear involving the posterior band of the supraspinat us with diffuse signal abnormality and thinning. Anterior supraspinatus fibers appear intact. Infras pinatus appears intact. Tear extends AP approximately 2.2 cm on the sagittal imaging. Trace subacromi al and subdeltoid fluid. Normal biceps tendon in the bicipital groove. Glenoid labrum appears normal. No visualized labral tea rs. Increased signal within the intra-articular biceps tendon compatible with tendinopathy. Intra-art icular biceps tendon appears intact. Subscapularis is intact. Normal bone marrow signal in the humerus and glenoid. Small amount of subcoracoid fluid. IMPRESSION: * Diffuse high-grade tear with fluid and edema involving the posterior band of the supraspinatus wit h thinning in this area. Anterior insertion appears intact. * Rotator cuff is otherwise normal in appearance. * Tendinopathy involving the intra-articular biceps tendon. * Normal biceps tendon in the bicipital groove. * Glenoid labrum appears normal. Biceps labral anchor appears normal. 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
== END 2022-11-25 14:09 | disposition home or self-care (01) ==
PROVIDERS: PCP Family Medicine; Visit Provider Student in an Organized Health Care Education/Training Program
DX: S43.439A Superior glenoid labrum lesion of unspecified shoulder, initial encounter (principal); S46.219A Strain of muscle, fascia and tendon of other parts of biceps, unspecified arm, initial encounter; X58.XXXA Exposure to other specified factors, initial encounter; M75.101 Unspecified rotator cuff tear or rupture of right shoulder, not specified as traumatic; M19.011 Primary osteoarthritis, right shoulder
CPT/HCPCS: 73221; 73223

== ENCOUNTER → 2022-12-10 06:50 | Outpatient (BNVA) | payer MEDICARE, OTHER, SELFPAY | PROVIDERS: PCP Family Medicine; Visit Provider Student in an Organized Health Care Education/Training Program | DX: M75.41 Impingement syndrome of right shoulder; M75.101 Unspecified rotator cuff tear or rupture of right shoulder, not specified as traumatic; M19.011 Primary osteoarthritis, right shoulder; M75.21 Bicipital tendinitis, right shoulder | CPT/HCPCS: 99214 ==

== ENCOUNTER 2022-12-16 09:53 | Outpatient (CLI) | payer MEDICARE, OTHER, SELFPAY ==
[2022-12-16 10:23] LABS: Basophils % 0.4 %; Eosinophils # 0.1 10^3/uL (0.0-0.8); Eosinophils % 2.7 %; Hematocrit 42.1 % (37-53); Lymphocytes # 1.6 10^3/uL (0.8-4.8); Lymphocytes % 34.5 %; Mean Corpuscular HGB Conc 32.3 g/dL (30-55); Mean Corpuscular Hemoglobin 30.9 pg (27-33); Mean Corpuscular Volume 95.7 fl (82-101); Mean Platelet Volume 9.9 fL (7.4-10.4); Monocytes # 0.6 10^3/uL (0.2-0.9); Monocytes % 12.2 %; Neutrophils # 2.26 10^3/uL (1.8-7.7); Nucleated Red Blood Cells % 0 %; Platelet Count 179 10^3/cmm (157-399); Red Cell Distribution Width 12.8 % (12.1-15.1); White Blood Count 4.52 10^3/uL (3.29-11.43)
[2022-12-16 10:55] LABS: Alanine Aminotransferase 22 U/L (0-41); Albumin Level 4.1 g/dL (3.5-5.2); Alkaline Phosphatase 63 U/L (40-130); Anion Gap 10.7 (5-19); Aspartate Amino Transferase 25 U/L (0-40); Blood Urea Nitrogen 23 mg/dL (8-23); Carbon Dioxide 29 mmol/L (22-29); Chloride 104 mmol/L (98-107); Globulin 2.6 g/dL (1.3-4.6); Glucose 89 mg/dL (65-115); Osmolality Calculated 291 mOsm/kg (285-295); Potassium 4.7 mmol/L (3.5-5.1); Sodium 139 mmol/L (136-145); Total Bilirubin 0.5 mg/dL (0.15-1.2); Total Protein 6.7 g/dL (6.6-8.7)
[2022-12-16 11:04] LABS: Add Urine Culture? No; Add Urine Microscopic? YES; Bacteria Urine TRACE /hpf; Bilirubin Urine Neg (Negative); Blood Urine 2+ (Negative); Glucose Urine UA Norm (Normal); Ketones Urine Negative (Negative); Leukocyte Esterase Urine Negative (Negative); Nitrate Urine Negative (Negative); Protein Urine Neg (Negative); RBC Urine 0-4 /hpf (0-2); Specific Gravity, Urine 1.005 (1.005-1.030); Squamous Epithelial Cell Urine 0-4 /hpf (0-5); Urine Appearance Clear (CLEAR); Urine Color Yellow (Yellow); Urobilinogen Urine Norm (Negative); WBC Urine 0-4 /hpf (0-5); pH Urine 5 (5-7)
== END 2022-12-16 09:54 | disposition home or self-care (01) ==
LOC: LAB 09:56
PROVIDERS: PCP Family Medicine; Visit Provider Student in an Organized Health Care Education/Training Program
DX: Z01.818 Encounter for other preprocedural examination (principal)
CPT/HCPCS: 36415; 80053; 81001; 85025

== ENCOUNTER → 2022-12-23 09:29 | Outpatient (BNVA) | payer MEDICARE, OTHER, SELFPAY | PROVIDERS: PCP Family Medicine; Visit Provider Family Medicine | DX: Z01.818 Encounter for other preprocedural examination (principal); R35.1 Nocturia | CPT/HCPCS: 81003; 87086 ==

== ENCOUNTER 2023-01-03 07:59 | Day surgery (SDC) | payer MEDICARE, OTHER, SELFPAY ==
[2022-12-31 12:55] VITALS: BMI 25.0
[2023-01-03] VITALS (15 sets, daily range): BP systolic 146–179; BP diastolic 67–93; PULSE 46–76; RESP 14–18; TEMP 35.8–36.6; O2SAT 93–100; BMI 25.0
[2023-01-03] MEDS: ketorolac 30 mg/mL INJ IVP (09:08)
[2023-01-03] MEDS: acetaminophen 1,000 MG/100 ML PIGGYBACK 400 MG IV (09:09)
[2023-01-03] MEDS: sodium chloride 0.9% 1,000 ML 30 ML IV (09:17)
[2023-01-03] MEDS: HYDROmorphone 1 mg/mL INJ 1 mL 0.5 MG IVP (09:26)
--- NOTE | 2023-01-03 10:12 | ANES.PREANE2 ---
Pre-Anesthetic Assessment Height/Weight: Height 1.83 m Weight 83.915 kg Temp Pulse Resp BP Pulse Ox O2 Del Method 97.1 F L 63 14 178/87 98 Room Air 01/03/23 08:36 01/03/23 09:43 01/03/23 09:43 01/03/23 09:43 01/03/23 09:43 01/03/23 09:43 Preop Diagnosis: Right shoulder rotator cuff tear, biceps tendinitis AC joint arthritis suba Operation Date: 01/03/23 09:45 Proposed Procedures p Shoulder Arthroscopy(Right) - Valdemar [place], DO s Bicep Tenotomy(Right) - Valdemar Thanh, DO s Subacromial Decompression(Right) - Valdemar [place], DO s AC Joint Resection(Right) - Valdemar Thanh, DO s Rotator Cuff Repair - Arthroscopy(Right) - Valdemar Thanh, DO Familial anesthetic complications: none Was Beta Rabia taken within 24 hours: N/A Was Clonidine taken within 24 hours: N/A Last intake: Intake Last Liquid Date 01/02/23 Last Liquid Time 22:00 Last Solid Date 01/02/23 Last Solid Time 18:00 Social No alcohol and No tobacco Exam alert, oriented x 3, clear to auscultation bilaterally and regular rate & rhythm Airway Submandibular: within normal limits Cervical ROM: within normal limits Mallampati: Class II Dentition: full CV/HEM Coronary Artery Disease (stents X 2), Deep Vein Thrombosis and Hypertension Anticoagulation GI Gastroesophageal Reflux Disease Metabolic Thyroid Disease Anesthetic Plan ASA status: 3 Anesthesia: General and Regional (specify below) (Right interscalene blk) Medications/Allergies Home Medications Medication Instructions Recorded Confirmed Last Taken Type diphenhydramine 25 1 tab PO .at bedtime PRN Insomnia 08/22/19 01/03/23 01/02/23 History mg-acetaminophen 500 mg tablet (Tylenol PM Extra Strength) methylcellulose (laxative) 500 mg 500 mg PO DAILY PRN Constipation 08/22/19 01/03/23 01/02/23 History tablet (Citrucel) nitroglycerin 0.4 mg sublingual 0.4 mg sublingual Q5M PRN Chest 08/22/19 12/31/22 Unknown History tablet (Nitrostat) Pain pantoprazole 20 mg tablet,delayed 20 mg PO DAILY 10/01/19 01/03/2301/02/23 History release levothyroxine 75 mcg capsule 75 mcg PO DAILY 90 days #90 caps 08/11/21 01/03/23 01/02/23 Rx atorvastatin 80 mg tablet (Lipitor) 80 mg PO DAILY #90 tabs 02/10/22 01/03/23 01/02/23 Rx ezetimibe 10 mg tablet (Zetia) 10 mg PO DAILY #90 tabs 02/10/22 01/03/23 01/02/23 Rx isosorbide mononitrate 30 mg 30 mg PO TID 90 days #270 tabs 02/10/22 01/03/23 01/02/23 Rx tablet,extended release 24 hr olmesartan 20 mg tablet (Benicar) 20 mg PO DAILY 02/16/22 01/03/23 01/02/23 History fluorouracil 5 % topical cream 1 applic topical BID PRN Rash 12/31/22 12/31/22 Unknown History clopidogrel 75 mg tablet (Plavix) 75 mg PO DAILY 01/03/23 12/31/22 12/29/22 History hydrocodone 5 mg-acetaminophen 325 1 tab PO Q6H PRN pain 5 days #20 01/03/23 Unknown Rx mg tablet tabs ondansetron 4 mg disintegrating 4 mg PO Q8H PRN nausea and 01/03/23 Unknown Rx tablet vomiting 3 days #9 tabs Allergies Allergy/AdvReac Type Severity Reaction Status Date / Time No Known Allergies Allergy Verified 12/31/22 12:50 Current Medications Generic Name Dose Route Start Last Admin Trade Name Freq PRN Reason Stop Dose Admin Hydromorphone HCl 0.5 mg 01/03/23 09:04 01/03/23 09:26 Hydromorphone 1 Mg/Ml Inj 1 Ml IVP 0.5 mg ONCE PRN Administration For preop pain/anxiety Sodium Chloride 1,000 mls @ 30 mls/hr 01/03/23 09:15 01/03/23 09:17 Sodium Chloride 0.9% IV 01/04/23 09:14 30 mls/hr .Q24H RENE Administration PFSH Anesthesia Medical History CAD (coronary artery disease) Dvt femoral (deep venous thrombosis) Erectile dysfunction Family history of prostate cancer HTN (hypertension) Hyperlipidemia Lower urinary tract symptoms (LUTS) Nocturia Prinzmetal angina Testicular hypofunction Surgical History History of orchiectomy Hx of decompression of ulnar nerve Hx of knee surgery Family History Mother , at age 78- Cancer lung Father , at age 73 CHF (congestive heart failure) Myocardial infarction (lateral wall) Social History Smoking and tobacco status: never smoked Alcohol intake: current Alcohol intake frequency: 0-2 Drinks per Day Alcohol type: beer Substance/Drug Use: never Marital status: Current occupational status: retired Data Anesthesia Cardiac Studies: Sestamibi Stress Test (Cardiology) 10/07/20 Anesthesia Procedures Nerve Block Nerve Block 1: Main Anesthesia: general anesthesia Time Out Performed: Yes Consent: requested by attending/covering physician, from patient, risks and benefits reviewed and patient agrees to proceed Nerve block location: interscalene (right) Anesthesia monitors applied: pulse oximetry, EKG, BP cuff and oxygen Nerve block position: semi sitting Anesthetic Used: ropivicaine 0.5% Amount of anesthesia used (mL): 30 Ultrasound used to: recognize landmarks and visualize and ID brachial plexus Nerve Stimulator Used?: No Interscalene/Femoral BLK: 2 stimuplex 22 g needle used for position and inplane approach Injection: neg aspiration of heme Patient Tolerated Procedure: well Complications: none
--- NOTE | 2023-01-03 10:27 | W.PM.OPSUD ---
Surgery/Procedure H&P Update DATE OF PROCEDURE: January 03, 2023 DATE H&P PERFORMED: 12/23/22 H&P UPDATE INFORMATION: I have reviewed H&P completed within last 30 days, I have examined patient prior to procedure and No changes to prior documentation PREOP DIAGNOSIS: Right shoulder rotator cuff tear, biceps tendinitis AC joint arthritis suba PRIMARY INDICATION FOR PROCEDURE: Right shoulder rotator cuff tear, biceps tendinitis, subacromial impingement, AC joint PLANNED PROCEDURE: Operation Date: 01/03/23 09:45 Proposed Procedures p Shoulder Arthroscopy(Right) - DO darcie Wong Bicep Tenotomy(Right) - DO darcie Wong Subacromial Decompression(Right) - DO darcie Wong AC Joint Resection(Right) - DO darcie Wong Rotator Cuff Repair - Arthroscopy(Right) - Valdemar Law DO
[2023-01-03] MEDS: ceFAZolin 2,000 MG in sodium chloride 0.9% (plus) 50 ML 100 MG IV (11:02)
[2023-01-03] MEDS: EPINEPHrine 1 mg/mL INJ 2 MG XX (11:39)
--- NOTE | 2023-01-03 11:46 | SUR.OPER ---
ATTEMPTED TO GIVE FAMILY UPDATE, BUT THERE WAS NO ANSWER AT THE PHONE NUMBER PROVIDED.
--- NOTE | 2023-01-03 13:02 | W.PM.BPON ---
Date of procedure: [January 03, 2023] Surgeon name: [Dr. Thanh FUNG] Steward/Stewardess Economy Class(s) name(s): [Marquis Law physician budget assistant] Procedure(s) performed: [Right shoulder arthroscopy and diagnostic, biceps tendon anatomy, subacromial decompression, AC joint resection, rotator cuff repair] Description of findings: [Right shoulder rotator cuff tear, biceps tendinitis, AC joint arthritis subacromial impingement] Estimated blood loss: [5 mL] Specimen(s) removed: [None] Post-operative diagnosis: [Right shoulder rotator cuff tear, biceps tendinitis, AC joint arthritis subacromial impingement]
--- NOTE | 2023-01-03 13:06 | P.OP_ITS ---
Operative Report Date of procedure: January 03, 2023 Surgeon: Valdemar Law DO Director Of Institutional Research: Marquis Law PA-C PA was necessary for assistance in this case with assistance in arm positioning as well as to assist with rotator cuff repair and passing of instrumentation. Procedure: Preoperative diagnosis: Right shoulder unstable biceps tendon anchor and tearing Right shoulder rotator cuff tear Right shoulder labral fraying Right shoulder AC joint arthritis Right shoulder subacromial impingement/bursitis Post-op diagnosis: Right?shoulder?labral tear Right?shoulder?biceps tendon tear Right?shoulder?rotator cuff tear Right?shoulder?AC joint arthritis Right?shoulder?subacromial bursitis/impingement Procedure done: Right?shoulder?diagnostic and surgical arthroscopy with arthroscopic rotator cuff repair Right?shoulder?diagnostic and surgical arthroscopy biceps tenotomy Right?shoulder?diagnostic and surgical arthroscopy labral debridement Right?shoulder?diagnostic and surgical arthroscopy acromioclavicular joint resection Right?shoulder?diagnostic and surgical arthroscopy subacromial decompression (acromioplasty and bursectomy) Surgeon: Valdemar Law DO Estimated blood loss: 5mL IV fluids: See anesthesia record Implants: Arthrex 4.75 swivel lock Arthrex scorpion and suture tape Complications: None Condition: stable Disposition: same day Brief History: Patient been seen and worked up in the outpatient setting for right?shoulder?pain.? Pt had an MRI which showed findings below.? Patient's failed conservative treatment and has weakness.? We talked about treatment options far as nonoperative and operative intervention..? We talked about risk benefits complication alternatives surgical nonsurgical treatment options.? Understanding risk of surgery he agrees to proceed with surgical intervention.? All questions have been answered at this time.? Patient elects proceed with surgery and consent obtained in office. IMPRESSION: *? Diffuse high-grade tear with fluid and edema involving the posterior band of the supraspinatus with thinning in this area. Anterior insertion appears intact. *? Rotator cuff is otherwise normal in appearance. *? Tendinopathy involving the intra-articular biceps tendon. *? Normal biceps tendon in the bicipital groove. *? Glenoid labrum appears normal. Biceps labral anchor appears normal. *? Moderate degenerative arthritis of the AC joint with mild downsloping? acromion and impingement distal supraspinatus with subacromial spurring. Procedure: Patient seen evaluated in the preoperative holding area.? Consent reviewed and signed with patient.? Once again reviewed patient's MRI results as well as? planned surgical intervention.? Correct extremity marked.? Patient seen evaluated by anesthesia department received regional anesthesia.? Once ready for surgery was taken back to the operative suite.? Patient then subsequently underwent anesthesia per the anesthesia department was transported onto the OR table.? Patient was then placed into a lateral decubitus position with a beanbag and was appropriately secured to the bed.? All bony prominences well-padded.? Patient then had the right upper extremity was then prepped and draped in standard orthopedic fashion.? Patient received appropriate preoperative antibiotics.? Final timeout performed. The right upper extremity was then held in hanging from traction utilizing sterile technique.? Next started with standard diagnostic and surgical arthroscopy with posterior portal position introduced arthroscope into the glenohumeral joint.? Visualized the glenohumeral joint I then introduced a spinal needle within the rotator cuff interval to confirm appropriate anterior portal placement.? Once this was confirmed I then made my small incision and then introduced my arthroscopic shaver into the glenohumeral joint.? After thorough debridement was clearly evident patient had a significant erythema as well as positive liftoff sign of the biceps anchor with tearing at the biceps anchor labrum junction. Decision at this time was made to perform a biceps tenotomy.? Introduced a thermal wand and a biceps tenotomy was performed to completion With appropriate release.? Next I evaluated the subscapularis tendon which was intact and no evidence of tear. ?Next there was significant labral tearing at biceps anchor and circumfere ntial.? ? I then subsequently utilized a a arthroscopic shaver and thermal wand to perform a labral debridement.? This point time I then visualized the glenohumeral joint.? The glenohumeral joint was found to have grade 1-2? chondromalacia throughout.? Infrapatellar pouch was free of loose bodies from viewing the posterior portal.? Next a visualized the rotator cuff superiorly and there was found to be a undersurface tearing of the supraspinatus tendon.? I utilized a spinal needle to andrei this location.?? This completed my work within the glenohumeral joint all fluid was suctioned free of the joint.? ?Next I reintroduced the arthroscope posteriorly.? And went to the subacromial space.? I established my lateral working portal at the site of which my spinal needle was marking of the rotator cuff tear.? Thermal wand was then introduced laterally and then I subsequently performed extensive bursectomy of the subacromial space.? Patient had a large anterior bone spur.? At this point time I proceeded with my AC joint resection thermal wand was used and track to the anterior edge of the acromion and then tracked all the way to the AC joint.? Once identified the AC joint this was very arthritic in nature.? Thermal wand was placed anteriorly to establish appropriate plane for AC joint resection.? Once appropriate margins and anterior inferior and anterior capsule was released I then introduced arthroscopic shaver and a bur and performed AC joint resection of both the acromion to cope plane at the AC joint and a distal clavicle resection was then performed totaling 1 cm in size and was confirmed.? This completed my AC joint resection and I then introduced the arthroscopic shaver laterally while continuing to view posteriorly.? I then performed an acromioplasty to complete my subacromial decompression prior to fixing the rotator cuff tear.? Next the arthroscopic shaver was then used previous spinal needle spot that is marked the full-thickness rotator cuff tear.? Given the smaller size this did not need a medial and lateral row configuration as result my plan was for a horizontal mattress stitch with a single lateral row anchor.? As result I loaded and Arthrex scorpion with fiber tape and subsequently.? A horizontal mattress purchase appropriately spaced to the small tear of the supraspinatus tendon.? At this point in time and then introduced a shaver to debride the rotator cuff footprint and decorticate the footprint in preparation for repair, next I marked by swivel lock position.? Fiber tape was then loaded into a 4.75 swivel lock I then subsequently punched and then subsequently placement 4.75 swivel lock while maintaining appropriate tension and repair of rotator cuff and this was advanced with excellent fixation I then had a final confirmation of appropriate repair of the supraspinatus rotator cuff tendon tear.? This did have a knotless fiber stitch available and given there was a small residual space of tear I then utilized a scorpion suture to pass my shuttling stitch full-thickness through the anterior portion of the tear and then utilizing my shuttling stitches performed a knotless autosensing suture repair tied into bilateral anchor which this was cinched and tension which had excellent repair of the rotator cuff tendon. Excess Sutures were then cut with an arthroscopic suture cutter and subsequently evaluated the rotator cuff repair.? Repair was found to be satisfactory?shoulder?was taken through range of motion and the repair moved as a unit with no evidence of loss of fixation. ?I then switched the arthroscope to the lateral portal to confirm this tension- free repair.? I took the?shoulder?through range of motion and the rotator cuff repair was stable and moved as a unit. ?Next I then introduced the arthroscopic shaver posteriorly to complete my subacromial decompression appropriate complaining all the way up to the lateral edge of the acromion.? This completed the surgery.? All fluid was suctioned from the?shoulder.? All instruments were removed.? The lateral incision was then closed with nylon stitches.? As well as the portal sites closed with portal nylon stitches.? Xeroform 4 x 4's ABD and tape was then applied to the right?shoulder?and was placed into a?shoulder?abduction pillow sling for rotator cuff repair.? Patient was then awakened from anesthesia and then taken back to PACU in stable condition.? Patient tolerated procedure without any issues. Disposition: Patient taken back in stable condition recovering well.? Dressings on in place clean dry and intact.? Will be nonweightbearing to the right upper extremity. Maintain sling at this time follow rotator cuff repair protocol.? Patient to follow-up with me in the office in 2 weeks.? Patient will receive appropriate discharge instruction as well as pain medication postoperatively.? All questions answered.? We will contact the office for any questions or concerns.
--- NOTE | 2023-01-03 13:07 | PM.PACU ---
PACU note Narrative: Patient is a 77-year-old male that just underwent a right shoulder diagnostic and arthroscopy procedure with rotator cuff tear repair. Patient transferred to PACU in stable condition. Pain is well controlled. shoulder Dressing on , dry and in place. Patient's operative arm is in a shoulder immobilizer. Patient is awake and alert and able to respond to my questions accordingly. Patient's fingers are warm with good perfusion. Normal cap refill under 2 seconds. Unable to assess further range of motion in arm due to sling. Unable to assess sensation due to residual localized anesthetic. Exam: awake Disposition: discharged
--- NOTE | 2023-01-03 14:18 | SUR.PHASEII ---
PT TEMP 96.4F. TRANG BATRES APPLIED TO Pt FOR WARMTH. Pt DENIES PAIN. ROM AND GOOD CAP REFILL TO FINGERS OF RIGHT HAND. AT BEDSIDE.
--- NOTE | 2023-01-03 15:11 | ANE.PACU2 ---
Inpatient post-anesthesia follow up: Airway intact: Yes Vital signs: Temperature 96.4 F Pulse Rate 48 Respiratory Rate 16 Blood Pressure 175/79 Pulse Oximetry 98 Oxygen Delivery Me thod Room Air Oxygen Flow Rate Fraction of Inspir ed Oxygen Hydration adequate: Yes Nausea and vomiting: No Pain level: 1 Mental status: Baseline
== END 2023-01-03 15:40 | disposition home or self-care (01) ==
PROVIDERS: PCP Family Medicine; Visit Provider Student in an Organized Health Care Education/Training Program
PROC: (CPT 29805; principal; 2023-01-03 09:45)
PROC: (CPT 24310; 2023-01-03 09:45)
PROC: (CPT 29826; 2023-01-03 09:45)
PROC: 0RSG0ZZ Reposition Right Acromioclavicular Joint, Open Approach (ICD-10-PCS; CPT 29824; 2023-01-03 09:45)
PROC: (CPT 29827; 2023-01-03 09:45)
DX: M75.101 Unspecified rotator cuff tear or rupture of right shoulder, not specified as traumatic (principal); M75.21 Bicipital tendinitis, right shoulder; M19.011 Primary osteoarthritis, right shoulder; I25.10 Atherosclerotic heart disease of native coronary artery without angina pectoris; Z95.5 Presence of coronary angioplasty implant and graft; I10 Essential (primary) hypertension; Z86.718 Personal history of other venous thrombosis and embolism; Z79.01 Long term (current) use of anticoagulants; K21.9 Gastro-esophageal reflux disease without esophagitis
CPT/HCPCS: 29824; 29826; 29827; 29828; C1713; J0131; J0171; J0690; J1100; J1170; J1885; J2405; J2704; J2710; J2795; J3010; J3490; J7030

== ENCOUNTER → 2023-01-18 10:48 | Outpatient (BNVA) | payer MEDICARE, OTHER, SELFPAY | PROVIDERS: PCP Family Medicine; Visit Provider Student in an Organized Health Care Education/Training Program | DX: Z98.890 Other specified postprocedural states (principal) | CPT/HCPCS: 99024 ==

== ENCOUNTER 2023-02-01 10:35 | Outpatient (RCR) | payer MEDICARE, OTHER, SELFPAY | END 2023-02-08 23:59 | disposition home or self-care (01) | LOC: SPT 10:35 | PROVIDERS: PCP Family Medicine; Visit Provider Student in an Organized Health Care Education/Training Program | DX: Z47.89 Encounter for other orthopedic aftercare (principal); M75.101 Unspecified rotator cuff tear or rupture of right shoulder, not specified as traumatic | CPT/HCPCS: 97110; 97140; 97161 ==

== ENCOUNTER 2023-02-09 06:00 | Outpatient (RCR) | payer MEDICARE, OTHER, SELFPAY | END 2023-03-10 23:59 | disposition home or self-care (01) | LOC: SPT 06:00 | PROVIDERS: PCP Family Medicine; Visit Provider Student in an Organized Health Care Education/Training Program | DX: Z98.890 Other specified postprocedural states (principal) | CPT/HCPCS: 97110; G0283 ==

== ENCOUNTER → 2023-02-22 14:27 | Outpatient (BNVA) | payer MEDICARE, OTHER, SELFPAY | PROVIDERS: PCP Family Medicine; Visit Provider Student in an Organized Health Care Education/Training Program | DX: Z98.890 Other specified postprocedural states (principal) | CPT/HCPCS: 99024; 99213 ==

== ENCOUNTER 2023-03-11 06:00 | Outpatient (RCR) | payer MEDICARE, OTHER, SELFPAY | END 2023-04-10 23:59 | disposition home or self-care (01) | LOC: SPT 06:00 | PROVIDERS: PCP Family Medicine; Visit Provider Student in an Organized Health Care Education/Training Program | DX: S46.001D Unspecified injury of muscle(s) and tendon(s) of the rotator cuff of right shoulder, subsequent encounter (principal); X58.XXXD Exposure to other specified factors, subsequent encounter | CPT/HCPCS: 97032; 97110; 97140; G0283 ==

== ENCOUNTER 2023-04-11 06:00 | Outpatient (RCR) | payer MEDICARE, OTHER, SELFPAY | END 2023-05-11 23:59 | disposition home or self-care (01) | LOC: SPT 06:00 | PROVIDERS: PCP Family Medicine; Visit Provider Student in an Organized Health Care Education/Training Program | DX: S46.001D Unspecified injury of muscle(s) and tendon(s) of the rotator cuff of right shoulder, subsequent encounter (principal); X58.XXXD Exposure to other specified factors, subsequent encounter | CPT/HCPCS: 97035; 97110 ==

== ENCOUNTER 2023-05-12 06:00 | Outpatient (RCR) | payer MEDICARE, OTHER, SELFPAY | END 2023-06-09 23:59 | disposition home or self-care (01) | LOC: SPT 06:00 | PROVIDERS: PCP Family Medicine; Visit Provider Student in an Organized Health Care Education/Training Program | DX: S46.001D Unspecified injury of muscle(s) and tendon(s) of the rotator cuff of right shoulder, subsequent encounter (principal); X58.XXXD Exposure to other specified factors, subsequent encounter | CPT/HCPCS: 97110 ==

== ENCOUNTER → 2023-06-07 09:47 | Outpatient (BNVA) | payer MEDICARE, OTHER, SELFPAY | PROVIDERS: PCP Family Medicine; Visit Provider Student in an Organized Health Care Education/Training Program | DX: Z98.890 Other specified postprocedural states (principal) | CPT/HCPCS: 99213 ==

== ENCOUNTER → 2024-02-01 12:43 | Outpatient (BNVA) | payer MEDICARE, OTHER, SELFPAY | PROVIDERS: PCP Registered Nurse; Visit Provider Internal Medicine Cardiovascular Disease | DX: I25.10 Atherosclerotic heart disease of native coronary artery without angina pectoris (principal); E78.2 Mixed hyperlipidemia; I10 Essential (primary) hypertension | CPT/HCPCS: 99213 ==

== ENCOUNTER → 2024-08-06 14:47 | Outpatient (BNVA) | payer MEDICARE, OTHER, SELFPAY | PROVIDERS: PCP Registered Nurse; Visit Provider Internal Medicine Cardiovascular Disease | DX: I25.10 Atherosclerotic heart disease of native coronary artery without angina pectoris (principal); K21.9 Gastro-esophageal reflux disease without esophagitis; I10 Essential (primary) hypertension | CPT/HCPCS: 99214 ==

== ENCOUNTER 2024-08-21 06:54 | Outpatient (CLI) | payer MEDICARE, OTHER, SELFPAY ==
--- NOTE | 2024-08-21 07:15 | USCV_ITS ---
Burt Marinelli Age: 79 Gender: M : 1945 Exam Date: 08/21/2024 07:35 Ordering Phys: Emma Brizuela MD ([email or web address]) Technologist: KELLEY Exam Location: [facility] [place] Indication: cp cad sob BP: 108 / 68 HR: 54 Rhythm: Sinus Technical Quality: Adequate MEASUREMENTS (Male / Female) Normal Values 2D ECHO LV Diastolic Diameter PLAX 5.1 cm 4.2 - 5.9 / 3.9 - 5.3 cm IVS Diastolic Thickness 0.9 cm 0.6 - 1.0 / 0.6 - 0.9 cm IVS Systolic Thickness 1.8 cm LVPW Diastolic Thickness 0.8 cm 0.6 - 1.0 / 0.6 - 0.9 cm LVPW Systolic Thickness 1.4 cm LVOT Diameter 2.0 cm LV Ejection Fraction 2D Teich 61.2 % LV Ejection Fraction MOD 4C 59.1 % LV Ejection Fraction MOD 2C 56.8 % LV Ejection Fraction 2C AL 57.4 % LA Diameter 3.8 cm RA Systolic Volume 4C AL 32.6 ml RA Systolic Volume 4C MOD 31.2 ml Aorta at Sinotubular Diameter 2.3 cm M-MODE LA Ao Ratio MM 1.4 AV Cusp Separation MM 1.5 cm DOPPLER AV Peak Velocity 116.0 cm/s LVOT Peak Velocity 75.0 cm/s AV Area Cont Eq vti 2.3 cm squared AV Area Cont Eq pk 2.1 cm squared MV Peak Velocity 104.0 cm/s MV Area PHT 3.7 cm squared Mitral E to A Ratio 1.0 TR Peak Velocity 95.0 cm/s TR Peak Gradient 3.6 mmHg TV Peak E Velocity 69.0 cm/s PV Peak Velocity 114.0 cm/s FINDINGS Left Ventricle Normal left ventricular size, systolic function and wall thickness, with no regional wall motion abnormalities. Left ventricular ejection fraction is estimated at 60 %. Grade I/IV diastolic dysfunction (abnormal relaxation filling pattern), normal to mildly elevated filling pressures. Right Ventricle The right ventricle is normal in size and function. Right Atrium The right atrium is normal in size. Left Atrium Mildly increased left atrial size. Mitral Valve Mildly thickened mitral valve. No mitral valve stenosis. Mild mitral valve regurgitation. Aortic Valve Structurally normal aortic valve without significant sclerosis or stenosis. There is no aortic regurgitation. Tricuspid Valve Structurally normal tricuspid valve without significant stenosis or regurgitation. Pulmonary artery systolic pressure is normal. Pulmonic Valve Structurally normal pulmonic valve without significant stenosis. There is no pulmonic regurgitation. Pericardium Normal pericardium without effusion. Aorta Normal ascending aorta dimension. IVC The inferior vena cava appears normal. CONCLUSIONS Normal left ventricular size, systolic function and wall thickness, with no regional wall motion abnormalities. Left ventricular ejection fraction is estimated at 60 %. Grade I/IV diastolic dysfunction (abnormal relaxation filling pattern), normal to mildly elevated filling pressures. Mildly increased left atrial size. There is no pericardial effusion. Right atrial pressure is around 5 mm of mercury. Emma Brizuela MD (Electronically Signed) Final Date: 29 Aug 2024 13:23 S
== END 2024-08-21 06:55 | disposition home or self-care (01) ==
PROVIDERS: PCP Registered Nurse; Visit Provider Internal Medicine Cardiovascular Disease
DX: I25.10 Atherosclerotic heart disease of native coronary artery without angina pectoris (principal); R93.1 Abnormal findings on diagnostic imaging of heart and coronary circulation; I51.7 Cardiomegaly; I34.0 Nonrheumatic mitral (valve) insufficiency
CPT/HCPCS: 93306

== ENCOUNTER 2024-10-07 22:34 | Emergency (ER) | payer MEDICARE, OTHER, SELFPAY ==
[2024-10-07 22:40] VITALS: BP 164/80; PULSE 65; RESP 18; TEMP 36.5; O2SAT 97; BMI 24.6
--- OUTSIDE RECORDS SUMMARY | 2024-10-07 22:41 | XMS_ITS | Clinical Summary ---
Author Organization [facility] de Address [address] [place] [address] Phone Care Team Providers Care Granulating Blender Name Role Phone Unavailable Primary Care Provider Unavailabl e Allergies No known active allergies Medications aspirin (ECOTRIN EC) 81 mg Tablet, Delayed Release (E.C.) Take 81 mg by mouth daily. Active raNITIdine (ZANTAC) 150 mg tablet Take 150 mg by mouth 2 times daily. 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 Active clopidogrel (PLAVIX) 75 mg Tablet Take 75 mg by mouth. Active levothyroxine 50 mcg tablet Take 50 mcg by mouth daily brush sander. Active atorvastatin (LIPITOR) 80 mg tablet Take 80 mg by mouth late in the day. Active METHYLCELLULOSE (CITRUCEL ORAL) Take by mouth. Active diphenhydrAMINE (BENADRYL) 50 mg capsule Take 50 mg by mouth nightly as needed for Insomnia. Active Active Problems Problem Noted Date Diagnosed Date Right lower quadrant abdominal pain 09/24/2016 Overview (09/24/2016): CT and lab from [facility]. 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 Gender Identity Not on file Sexual Orientation Not on file Last Filed Vital Signs Vital Sign Reading Time Taken Comments Blood Pressure 147/77 10/14/2016 1:09 PM CDT Pulse 63 10/14/2016 1:09 PM CDT Temperature 36.7 C (98 F) 10/14/2016 1:10 PM CDT Respiratory Rate 18 10/14/2016 1:09 PM CDT Oxygen Saturation 97% 10/14/2016 1:09 PM CDT Inhaled Oxygen Concentration - - Weight 85.3 kg (188 lb) 10/04/2016 9:39 AM CDT Height 182.9 cm (6') 10/04/2016 9:39 AM CDT Body Mass Index 25.5 10/04/2016 9:39 AM CDT Plan of Treatment Health Maintenance Due Date Last Done Comments DTAP/TDAP/TD VACCINES (1 - Tdap) 1964 PNEUMOCOCCAL VACCINE 50+ YEARS (1 of 1 - PCV) 08/08/18 96 ZOSTER VACCINE (1 of 2) 08/09/1995 COLORECTAL SCREENING 10/15/2019 10/14/2016 RSV VACCINE (60+ or ) (1 - 1-dose 75+ series) 2020 INFLUENZA VACCINE (#1) 2023 Insurance MEDICARE PART A AND B [facility] Advance Directives For more information, please contact: [phone] * Full Code (Latest Code Status on File) Date Activated Date Inactivated Comments 10/14/2016 11:54 AM 10/14/2016 3:16 PM
--- OUTSIDE RECORDS SUMMARY | 2024-10-07 22:41 | XMS_ITS | Clinical Summary ---
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 09/21/2016 Active clopidogreL (PLAVIX) 75 mg Tablet Take 75 mg by mouth. 09/21/2016 Active aspirin (ECOTRIN EC) 81 mg Tablet, Delayed Release (E.C.) Take 81 mg by mouth daily. 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 09/21/2016 Active raNITIdine (ZANTAC) 150 mg tablet Take 150 mg by mouth 2 times daily. 09/21/2016 Active atorvastatin (LIPITOR) 80 mg tablet Take 80 mg by mouth late in the day. 09/21/2016 Active methylcellulose (CITRUCEL ORAL) Take by mouth. 09/21/2016 Active diphenhydrAMINE (BENADRYL) 50 mg capsule Take 50 mg by mouth nightly as needed for Insomnia. 10/04/2016 Active Active Problems Problem Noted Date Diagnosed Date Right lower quadrant abdominal pain 09/24/2016 Overview (08/07/2020): CT and lab from [facility]. Social History Tobacco Use Types Packs/Day Years Used Date Smoking Tobacco: Never Alcohol Use Standard Drinks/Week Comments Yes 0 (1 standard drink = 0.6 oz pur e alcohol) Sex and Gender Information Value Date Recorded Sex Assigned at Not on file Legal Sex Male 11:54 PM [employer] Gender Identity Not on file Sexual Orientation Not on file Last Filed Vital Signs Vital Sign Reading Time Taken Comments Blood Pressure 147/77 10/14/2016 1:09 PM CDT Pulse 63 10/14/2016 1:09 PM CDT Temperature 36.7 C (98 F) 10/14/2016 1:10 PM CDT Respiratory Rate 18 10/14/2016 1:09 PM CDT Oxygen Saturation - - Inhaled Oxygen Concentration - - Weight 85.3 [...]
--- OUTSIDE RECORDS SUMMARY | 2024-10-07 22:42 | XMS_ITS | Data Portability ---
Author Organization VALENTINE Peña [facility], [facility] Address [address] [address] Care Team Providers Care Secretary Of State Name Role Phone CEE RAYMUNDO Primary Care Provider [phone] Assessment No assessment recorded. Plan of Treatment Reminders Order Date Submit Date Provider Last Modified By Organization Details Last Modified Time Details Appointments OFFICE VISIT 15 2024 01:20P Yasmeen Raymundo MD Not available Not available Not available RECHECK 2024 01:00P Yasmeen Raymundo MD Not available Not available Not available Lab CMP, serum or plasma 2024 025 DIANE [facility], [address] [place] [address], [id number], 10/06/2024 20:20:45 lipid panel, blood 2024 025 [facility], [address] [place] [address], [id number], 10/06/2024 20:20:45 TSH, serum or plasma 2024 025 [email or web address] [facility] ([facility]), [address] [place] [address], [phone], 10/06/2024 20:20:34 CMP, serum or plasma 2024 025 DIANE [facility], [address] [place] [address] Ave, [address], [place], [address], 05/17/2024 21:29:24 CBC 2024 025 [facility], [address] [facility], [address], [place], [address], 05/17/2024 21:29:17 lipase, serum or plasma 2024 025 DIANEOleOle [facility], [address] [place] [address], [address], [place], [address], 05/18/2024 06:57:48 amylase, serum or plasma 2024 025 DIANEOleOle [facility], [address] [place] [address], [address], [place], [address], 05/18/2024 06:57:46 TSH, serum or plasma 2023 024 [facility] ([facility]), [address] [place], [address], 08/15/2023 11:44:00 CMP, serum or plasma 2023 024 [facility], [address] [facility], [facility] [place], [address], 08/15/2023 11:44:34 Referral None recorded. Procedures None recorded. Surgeries None recorded. Imaging None recorded. Medication Orders doxycycli ne hyclate 100 mg capsule 2024 025 [facility] [place], [address] [place], [address], 09/23/2024 05:02:16 Patient TargetsNo targets recorded. Patient InstructionsNo instructions recorded. Reason for Referral None Reported. Results Created Date Observation Date Name Description Value Unit Range Abnormal Flag Note LastModifiedBy Organization Detail LastModifiedTime 08/15/1908/15/2023 CMP (MALE ) glucose 96.0 mg/dL 60.0-9 9.0 Not Available [facility] [address] [facility], [place], [address], 08/15/2023 11:44:33 08/15/19 24 08/15/2023 CMP (MALE ) BUN (blood urea nitrogen) 21.0 mg/dL 10.0-2 6.0 Not Available [facility] [address] [facility], [place], [address], 08/15/2023 11:44:33 08/15/19 24 08/15/2023 CMP (MALE ) creatinine (serum) 1.0 mg/dL 0.4-1. 5 Not Available [facility] [address] [facility] [address] [address], [place], [address], 08/15/2023 11:44:33 08/15/19 24 08/15/2023 CMP (MALE ) BUN/creatini ne ratio 20.19 ratio Not Available [facility] [address] [address], [place], [address], 08/15/2023 11:44:33 08/15/19 24 08/15/2023 CMP (MALE ) eGFR calculated 73.4 Not Available [facility] [address] [address], [place], [address], 08/15/2023 11:44:33 08/15/19 24 08/15/2023 CMP (MALE ) total protein 7.4 g/dL 6.0-8. 5 Not Available [facility] [address] [facility] [address] [address], [place], [address], 08/15/2023 11:44:33 08/15/19 24 08/15/2023 CMP (MALE ) total bilirubin 0.8 mg/dL 0.2-1. 3 Not Available [facility] [address] [facility] [address] [place], [address], 08/15/2023 11:44:33 08/15/19 24 08/15/2023 CMP (MALE ) albumin 4.5 g/dL 3.5-5. 5 Not Available [facility] [address] [facility] 1, [place], [address], 08/15/2023 11:44:33 08/15/19 24 08/15/2023 CMP (MALE ) globulin 2.9 calc Not Available [facility] [address] [place] [address] [facility] 1, [place], [address], 08/15/2023 11:44:33 08/15/19 24 08/15/2023 CMP (MALE ) AST (SGOT) 39.0 U/L 0.0-46 .0 Not Available [facility] [address] [facility] 1, [place], [address], 08/15/2023 11:44:33 08/15/19 24 08/15/2023 CMP (MALE ) altv (SGPT) 31.0 U/L 13.0-6 9.0 normal Not Available [facility] [address] [facility] 1, [place], [address], 08/15/2023 11:44:33 08/15/19 24 08/15/2023 CMP (MALE ) A/G ratio 1.6 ratio Not Available [facility] C [facility] [address] [facility] 1, [place], [address], 08/15/2023 11:44:33 08/15/19 24 08/15/2023 CMP (MALE ) ALP phos 84.0 U/L 30.0-1 40.0 normal Not Available [facility] [address] [facility] 1, [place], [address], 08/15/2023 11:44:33 08/15/19 24 08/15/2023 CMP (MALE ) calcium 9.4 mg/dL 8.4-10 .5 Not Available [facility] [address] [facility] 1, [place], [address], 08/15/2023 11:44:33 08/15/19 24 08/15/2023 CMP (MALE ) sodium 139.0 mmol/ L 136.0- 145.0 Not Available [facility] [address] [facility] 1, [place], [address], 08/15/2023 11:44:33 08/15/19 24 08/15/2023 CMP (MALE ) potassium 4.4 mmol/ L 3.5-5. 1 Not Available [facility] [address] [facility] 1, [place], [address], 08/15/2023 11:44:33 08/15/19 24 08/15/2023 CMP (MALE ) chloride 106.0 mmol/ L 98.0-1 10.0 normal Not Available [facility] 805 [facility] 1, [place], [address], 08/15/2023 11:44:33 08/15/19 24 08/15/2023 CMP (MALE ) C02 30.0 mmol/ L 22.0-3 1.0 Not Available [facility] [address] [facility] 1, [place], [address], 08/15/2023 11:44:33 08/15/19 24 08/15/2023 CMP (MALE ) anion gap 3.0 calc Not Available [facility] [address]05 [facility] 1, [place], [address], 08/15/2023 11:44:33 08/15/19 24 08/15/2023 CMP (MALE ) osmolality 289.8 calc Not Available [facility] 805 [facility] 1, [place], [address], 08/15/2023 11:44:33 08/15/19 24 08/15/2023 TSH, serum or plasm a TSH 1.69 uIU/m L 0.49-3 .82 Not Available [facility] ([facility]) [address] [place], [address], 08/15/2023 10:30:16 05/17/19 25 05/17/2024 CBC WBC 4.5 x10 4.5-10 .5 Not Available [facility] [address] [facility] [address] [address], [place], [address], 05/17/2024 21:29:17 05/17/19 25 05/17/2024 CBC RBC 4.39 x10 4.30-5 .90 Not Available [facility] [address] [facility] 1, [place], [address], 05/17/2024 21:29:17 05/17/19 25 05/17/2024 CBC HGB 14.0 g/dL 13.5-1 8.0 Not Available [facility] [address] [facility], [place], [address], 05/17/2024 21:29:17 05/17/19 25 05/17/2024 CBC HCT 40.6 % 35.0-6 0.0 Not Available [facility] [address] [facility], [place], [address], 05/17/2024 21:29:17 05/17/19 25 05/17/2024 CBC MCV 92.5 fL 80.0-9 9.9 Not Available [facility] [address] [facility] [address] [facility] 1, [place], [address], 05/17/2024 21:29:17 05/17/19 25 05/17/2024 CBC MCH 32.0 pg 27.0-3 2.0 Not Available [facility] [address] [facility] 1, [place], [address], 05/17/2024 21:29:17 05/17/1905/17/2024 CBC MCHC 34.6 g/dL 32.0-3 6.0 Not Available [facility] [address] [facility] 1, [place], [address], 05/17/2024 21:29:17 05/17/19 25 05/17/2024 CBC RDW 14.1 % 11.5-1 4.5 Not Available [facility] [address] [facility] 1, [place], [address], 05/17/2024 21:29:17 05/17/19 25 05/17/2024 CBC plt 163.6 x10 150.0- 451.0 Not Available [facility] [address] [place] [address] [facility] 1, [place], [address], 05/17/2024 21:29:17 05/17/19 25 05/17/2024 CBC lymphocytes % 33.3 % 20.0-5 0.0 Not Available [facility] [address] [facility] 1, [place], [address], 05/17/2024 21:29:17 05/17/1905/17/2024 CBC granulcytes % 48.5 % 30.0-7 0.0 Not Available [facility] [address] [place] [address] [facility] 1, [place], [address], 05/17/2024 21:29:17 05/17/1905/17/2024 CBC monocytes % 14.1 % 2.0-16 .0 Not Available [facility] [address] [facility] 1, [place], [address], 05/17/2024 21:29:17 05/17/19 25 05/17/2024 CBC granulcytes# 2.2 x10 Not Lisa ilable [facility] [address] [facility] 1, [place], [address], 05/17/2024 21:29:17 05/17/19 25 05/17/2024 CBC lymphocytes # 1.5 x10 Not Available [facility] [address] [address], [place], [address], 05/17/2024 21:29:17 05/17/19 25 05/17/2024 CBC monocytes # 0.6 x10 Not Avai lable [facility] [address] [address], [place], [address], 05/17/2024 21:29:17 05/17/19 25 05/17/2024 CMP (MALE ) glucose 101.0 mg/dL 60.0-9 9.0 high Not Available [facility] [address] [address], [place], [address], 05/17/2024 21:29:23 05/17/19 25 05/17/2024 CMP (MALE ) BUN (blood urea nitrogen) 22.0 mg/dL 10.0-2 6.0 Not Available [facility] [address] [address], [place], [address], 05/17/2024 21:29:23 05/17/19 25 05/17/2024 CMP (MALE ) creatinine (serum) 1.1 mg/dL 0.4-1. 5 Not Available [facility] [address] [address], [place], [address], 05/17/2024 21:29:23 05/17/19 25 05/17/2024 CMP (MALE ) BUN/creatini ne ratio 20.00 ratio Not Available [facility] [address] [address], [place], [address], 05/17/2024 21:29:23 05/17/19 25 05/17/2024 CMP (MALE ) eGFR calculated 68.8 Not Available [facility] [address]05 [facility] 1, [place], [address], 05/17/2024 21:29:23 05/17/19 25 05/17/2024 CMP (MALE ) total protein 7.5 g/dL 6.0-8. 5 Not Available [facility] [address] [facility] 1, [place], [address], 05/17/2024 21:29:23 05/17/19 25 05/17/2024 CMP (MALE ) total bilirubin 0.7 mg/dL 0.2-1. 3 Not Available [facility] [address] [facility] 1, [place], [address], 05/17/2024 21:29:23 05/17/19 25 05/17/2024 CMP (MALE ) albumin 4.5 g/dL 3.5-5. 5 Not Available [facility] [address] [facility] 1, [place], [address], 05/17/2024 21:29:23 05/17/19 25 05/17/2024 CMP (MALE ) globulin 3.0 calc Not Available [facility] [address] [address], [place], [address], 05/17/2024 21:29:23 05/17/19 25 05/17/2024 CMP (MALE ) AST (SGOT) 40.0 U/L 0.0-46 .0 Not Available [facility] [address] [facility] 1, [place], [address], 05/17/2024 21:29:23 05/17/19 25 05/17/2024 CMP (MALE ) altv (SGPT) 26.0 U/L 13.0-6 9.0 normal Not Available [facility] [address] [facility], [place], [address], 05/17/2024 21:29:23 05/17/19 25 05/17/2024 CMP (MALE ) A/G ratio 1.5 ratio Not Available [facility] [address] [facility] 1, [place], [address], 05/17/2024 21:29:23 05/17/19 25 05/17/2024 CMP (MALE ) ALP phos 76.0 U/L 30.0-1 40.0 normal Not Available [facility] [address] [facility] 1, [place], [address], 05/17/2024 21:29:23 05/17/19 25 05/17/2024 CMP (MALE ) calcium 9.3 mg/dL 8.4-10 .5 Not Available [facility] [address] [facility] 1, [place], [address], 05/17/2024 21:29:23 05/17/19 25 05/17/2024 CMP (MALE ) sodium 137.0 mmol/ L 136.0- 145.0 Not Available [facility] [address] [address], [place], [address], 05/17/2024 21:29:23 05/17/19 25 05/17/2024 CMP (MALE ) potassium 4.6 mmol/ L 3.5-5. 1 Not Available [facility] [address] [facility] 1, [place], [address], 05/17/2024 21:29:23 05/17/19 25 05/17/2024 CMP (MALE ) chloride 104.0 mmol/ L 98.0-1 10.0 normal Not Available [facility] [address] [facility], [place], [address], 05/17/2024 21:29:23 05/17/19 25 05/17/2024 CMP (MALE ) C02 28.0 mmol/ L 22.0-3 1.0 Not Available [facility] [address] [facility], [place], [address], 05/17/2024 21:29:23 05/17/19 25 05/17/2024 CMP (MALE ) anion gap 5.0 calc Not Available [facility] [address] [facility] [address], [place], [address], 05/17/2024 21:29:23 05/17/19 25 05/17/2024 CMP (MALE ) osmolality 286.4 calc Not Available [facility] [address] [facility] [address], [place], [address], 05/17/2024 21:29:23 05/17/19 25 05/18/2024 AMYLA SE amylase 70 U/L 21-101 normal Not Available [facility] [address] [place], [address], 05/18/2024 06:57:46 05/17/19 25 05/18/2024 LIPAS E lipase 37 U/L 7-60 normal Not Available [facility] [address] [place], [address], 05/18/2024 06:57:48 Result Notes None recorded. 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 5 09:19:48 Lesion of skin of face 55252237096 6 Active 2024 MICHAEL anderson [facility] 5 15:45:49 Hypothyro idism 43548519 Active 2022 Not Available [facility] 4 11:27:20 Hyperchol esterolem ia 07066160 Active 2022 Not Available [facility] 4 11:27:20 Essential hypertens ion 05821688 Active 2022 Not Available [facility] 4 11:27:20 Lesion of skin of right ear 56544464203 483333 Active 2022 Not Available [facility] 4 11:27:20 Problem Notes None recorded. Procedures Surgical History Date Name Laterality Status Provider Name and Address Organization Details Recorded Time 3 complete repair of rotator cuff completed MICHAEL PRIDE [facility] 02/14/2023 12:18:22 3 Joint Inj Kenalog- Shoulder, Hip, Knee completed Cee Raymundo MD [address] [place] [address], [phone], [facility], [place] 09/03/2022 15:22:18 0 [facility] [place] 08/15/2023 09:59:44 excision of basal cell carcinoma completed [facility], [place] 08/15/2023 09:49:54 Imaging Results None recorded. Procedure Notes None recorded. Medical Equipment None Reported. Allergies No known drug allergies Medications Name Sig Start Date Stop Date Status Note LastModified by Organization Details LastModified Time methocarb macrina 500 mg tablet TAKE 1 TABLET BY MOUTH THREE TIMES DAILY NEEDED FOR POST OP 08/14 completed Not Available Not Available Not Available atorvasta tin 80 mg tablet TAKE 1 TABLET BY MOUTH EVERY DAY active Not Available Not Available No t Available Protonix 40 mg tablet,de layed release QD 02/14 completed vo JR/tn; 173; Recorded 02/06/20 22 2:50PM by James wagoner (Authori zed through Cee Raymundo MD), Refill Request; Refill Quantity : 90; Tablet; Not Available Not Available Not Available doxycycli ne hyclate 100 mg capsule Take 1 capsule twice a day by oral route for 10 days. 09/23 completed Not Available Not Available Not Available hydrocodo ne 5 mg-acetam inophen 325 mg tablet TAKE 1 TABLET BY MOUTH EVERY 6 HOURS NEEDED FOR PAIN for 5 days 02/14 completed Not Available Not Available Not Available isosorbid e mononitra te ER 30 mg tablet,ex tended release 24 hr TAKE 1 TABLET BY MOUTH THREE TIMES DAILY active Not Available Not Available No t Available fluoroura cil 5 % topical cream APPLY A SUFFICIE NT AMOUNT TO COVER THE LESIONS IN THE AFFECTED AREA(S) BY TOPICAL ROUTE 2 TIMES PER DAY active Not Available Not Available No t Available acetamino phen 300 mg-codein e 30 mg tablet TAKE ONE TABLET BY MOUTH EVERY 4 HOURS NEEDED FOR PAIN 09/03 completed Not Available Not Available Not Available clopidogr el 75 mg tablet TAKE 1 TABLET BY MOUTH EVERY DAY active Not Available Not Available No t Available pantopraz ole 20 mg tablet,de layed release take ONE tablet BY MOUTH daily active Not Available Not Available No t Available levothyro xine 75 mcg tablet TAKE 1 TABLET BY MOUTH EVERY DAY active Not Available Not Available No t Available oxycodone -acetamin ophen 5 mg-325 mg tablet TAKE 1 TABLET BY MOUTH EVERY 6 HOURS NEEDED FOR PAIN for 7 days 08/14 completed Not Available Not Available Not Available amlodipin e 10 mg tablet TAKE 1 TABLET BY MOUTH EVERY DAY 07/12 completed Not Available Not Available Not Available nitroglyc phillip 0.4 mg sublingua l tablet DISSOLVE 1 TABLET UNDER THE TONGUE EVERY 5 MINUTES NEEDED FOR CHEST PAIN. DO NOT EXCEED A TOTAL OF 3 DOSES IN 15 MINUTES. active Not Available Not Available No t Available furosemid e 20 mg tablet TAKE 1 TABLET BY MOUTH EVERY DAY 07/12 completed Not Available Not Available Not Available hydrocort isone 2.5 % topical ointment APPLY A THIN LAYER TO AFFECTED AREA TWICE DAILY 05/17 completed Not Available Not Available Not Available ondansetr on 4 mg disintegr ating tablet DISSOLVE ONE TABLET BY MOUTH EVERY 8 HOURS NEEDED FOR NAUSEA AND VOMITING FOR THREE DAYS 02/14 completed Not Available Not Available Not Available amoxicill in 875 mg-potass ium clavulana te 125 mg tablet TAKE 1 TABLET BY MOUTH TWICE DAILY for 7 days 07/12 completed Not Available Not Available Not Available olmesarta n 20 mg tablet TAKE 1 TABLET BY MOUTH EVERY DAY active Not Available Not Available No t Available ezetimibe 10 mg tablet TAKE 1 TABLET BY MOUTH EVERY DAY active Not Available Not Available No t Available Tylenol PM Extra Strength 25 mg-500 mg tablet Take 2 tablets every day by oral route at bedtime. 09/03 completed Not Available Not Available Not Available atorvasta tin QD 02/14 completed VO JR/tn; 173; Recorded 12/02/19 21 5:02PM by James wagoner (Authori evelynd through Cee Raymundo MD), Refill Request; Refill Quantity : 90; Tablet; Not Available Not Available Not Available aspirin 81 MG QD active Not Available Not Lisa ilable Not Available Plavix QD 02/14 completed 0; Recorded 02/10/20 22 8:39AM by James wagoner, Office Visit; Not Available Not Available Not Available fiber daily 08/14 completed 0; Recorded 02/10/20 22 8:39AM by James wagoner, Office Visit; Not Available Not Available Not Available debbie n QD 02/14 completed vo JR/bh; 173; Recorded 05/26/19 23 10:20AM by Michael Pride RN (Authori evelynd through Cee Raymundo MD), Refill Request; Refill Quantity : 0; Not Available Not Available Not Available Paxlovid 300 mg (150 mg x 2)-100 mg tablets in a dose pack take all 3 morning tabs (yellow side) by mouth at the same time & all 3 evening tabs (blue side) at the same time for 5 days as directed 08/14 completed Not Available Not Available Not Available Vitals Date Recorded Body height Body mass index (BMI) Body weight Oxygen saturation Oxygen saturation in Arterial blood by Pulse oximetry Heart rate Respiratory rate Body temperature Systolic blood pressure Diastolic blood pressure Provider Name and Address Organization Details Last Updated DateTime 5 180.98 cm 25.9 kg/m2 55654.7 7 g 99 % 99 % 68 /min 20 /min 98 [degF] 120 mm[Hg] 80 mm[Hg] PATRICIA LEONE [facility] 5 11:23:51 Date Recorded Body height Body mass index (BMI) Body weight Respiratory rate Body temperature Heart rate Oxygen saturation Oxygen saturation in Arterial blood by Pulse oximetry Systolic blood pressure Diastolic blood pressure Provider Name and Address Organization Details Last Updated DateTime 4 180.98 cm 25.7 kg/m2 92156.3 9 g 20 /min 98.1 [degF] 58 /min 98 % 98 % 118 mm[Hg] 70 mm[Hg] MICHAEL PRIDE [facility] 4 09:54:02 Date Recorded Body height Body mass index (BMI) Body weight Oxygen saturation Oxygen saturation in Arterial blood by Pulse oximetry Heart rate Respiratory rate Body temperature Systolic blood pressure Diastolic blood pressure Provider Name and Address Organization Details Last Updated DateTime 5 180.98 cm 25.9 kg/m2 06669.7 7 g 98 % 98 % 84 /min 16 /min 98.2 [degF] 138 mm[Hg] 80 mm[Hg] Lexii Velez [facility] 5 09:13:28 Date Recorded Body height Body mass index (BMI) Body weight Respiratory rate Heart rate Oxygen saturation Oxygen saturation in Arterial blood by Pulse oximetry Body temperature Systolic blood pressure Diastolic blood pressure Provider Name and Address Organization Details Last Updated DateTime 5 180.98 cm 25.8 kg/m2 22223.2 8 g 18 /min 71 /min 98 % 98 % 97.9 [degF] 130 mm[Hg] 70 mm[Hg] MICHAEL HENRY [facility] 5 15:38:54 Date Recorded Body height Body mass index (BMI) Body weight Oxygen saturation Oxygen saturation in Arterial blood by Pulse oximetry Heart rate Respiratory rate Body temperature Systolic blood pressure Diastolic blood pressure Provider Name and Address Organization Details Last Updated DateTime 4 180.98 cm 26.2 kg/m2 59565.3 6 g 97 % 97 % 63 /min 20 /min 98.1 [degF] 138 mm[Hg] 76 mm[Hg] MICHAEL HENRY [facility] 4 12:40:03 Social History Question Answer Notes LastModified by [employer] Details LastModified Time Tobacco Smoking Status Never Smoker MICHAEL PRIDE [facility] 09/03/2022 14:31:14 What Was The Date Of Your Most Recent Tobacco Screening? 09/06/2024 [email or web address] Information not available 09/06/2024 Sex: Unknown Functional Status Question Answer Note LastModified by [employer] Details LastModified Time Do you or have you ever used any other forms of tobacco or nicotine? No Information not available 02/14/2023 What is your level of alcohol consumption? Occasional Information not available 02/14/2023 Mental Status None recorded. Family History Nothing Reported. Medical History Condition Response Cancer Immunizations Vaccine Type Date Status Note Provider Nam e and Address Organization Details Recorded Time zoster live 3 completed MICHAEL anderson, [facility] 02/14/2023 12:20:12 Influenza, split virus, trivalent, preservative 2 completed [facility]14[facility]23 12:20:13 Influenza, split virus, trivalent, preservative 4 completed [facility] 02/14/2023 12:20:12 Influenza, split virus, trivalent, preservative 3 completed MICHAEL anderson [facility] 02/14/2023 12:20:13 Influenza, split virus, trivalent, preservative 5 completed [facility] 02/14/2023 12:20:13 Influenza, split virus, trivalent, preservative 6 completed MICHAEL PRIDE [facility] 02/14/2023 12:20:12 Influenza, adjuvanted, quadrivalent, PF 3 completed [facility] 09/10/2024 15:39:01 RSV, bivalent, protein subunit RSVpreF, diluent reconstituted, 0.5 mL, PF 3 completed MICHAEL PRIDE [facility] 08/15/2023 09:44:58 COVID-19, mRNA, LNP-S, PF, 50 mcg/0.5 mL 4 completed [facility] Available [facility] 09/10/2024 14:34:20 Influenza, adjuvanted, trivalent, PF 4 completed Not Available [facility] 09/10/2024 14:34:20 COVID-19, mRNA, LNP-S, PF, 50 mcg/0.5 mL 4 completed Not Available [facility] 09/10/2024 14:34:20 RSV, bivalent, protein subunit RSVpreF, diluent reconstituted, 0.5 mL, PF 3 completed Not Available [facility] 09/10/2024 14:34:20 zoster recombinant 8 completed MICHAEL anderson, [facility] 02/14/2023 12:20:12 Influenza, high-dose, quadrivalent, PF 2 completed [facility] 02/14/2023 12:20:12 Influenza, adjuvanted, quadrivalent, PF 1 completed [facility] 02/14/2023 12:20:12 COVID-19, mRNA, LNP-S, PF, 100 mcg/0.5mL dose or 50 mcg/0.25mL dose 1 completed [facility] 02/14/2023 12:20:12 COVID-19, mRNA, LNP-S, bivalent, PF, 50 mcg/0.5 mL or 25mcg/0.25 mL dose 2 completed [facility] 02/14/2023 12:20:12 Pneumococcal conjugate PCV 13 6 completed [facility] 02/14/2023 12:20:12 Influenza, high-dose, trivalent, PF 6 completed MICHAEL anderson, [facility] 02/14/2023 12:20:12 Influenza, high-dose, trivalent, PF 8 completed MICHAELBERNARD GARCIAY null, [facility] 02/14/2023 12:20:12 Influenza, high-dose, trivalent, PF 7 completed MICHAELBERNARD GARCIAY null, [facility] 02/14/2023 12:20:12 Influenza, high-dose, trivalent, PF 9 completed MICHAELBERNARD GARCIAY null, [facility] 02/14/2023 12:20:12 Influenza, split virus, quadrivalent, PF 0 completed MICHAELBERNARD anderson, [facility] 02/14/2023 12:20:13 zoster recombinant 8 completed MICHAEL anderson, [facility] 02/14/2023 12:20:12 zoster recombinant 3 completed MICHAEL anderson, [facility] 02/14/2023 12:20:12 pneumococcal polysaccharide PPV23 4 completed MICHAEL anderson, [facility] 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 We will monitor it for a few weeks to see if it resolves before more diagnostic s. Lesion of skin of right ear [id number] 9838512 H93.8X1 [place] versus dermatitis . If it doesn't respond to steroids, he will see his dermatolog ist in 2 months. Atopic dermatitis 554150 01 L20.9 [id number] Cee Raymundo MD [facility] ([facility]) [address] [place] [address] [id number] 5 09/03/2022 14:16:30 09/03/2022 19:07:09 Pain of right shoulder joint [id number] 9958704 M25.511 Right shoulder injection [id number] Cee Raymundo MD [facility] ([facility]) [address] [place] [address] [id number] 5 01/11/2023 08:46:02 01/29/2023 07:38:33 [id number] Cee Raymundo MD [facility] ([facility]) [address] [place] [address] [id number] 5 02/14/2023 11:16:08 02/14/2023 16:04:12 Hypercholesterolemia 21202768 E78.00 Hypothyroidism 19195736 E03.9 Essential hypertension 12634119 I10 [id number] Lavon Charles MD [facility] ([facility]) [address] [place] [address] [id number] 5 03/31/2023 11:09:16 04/06/2023 14:17:00 Viral screening 838325592 Z11.52 Positive COVID COVID-19 484248572 U07.1 Patient is positive for COVID. Patient does have risk factors that puts the patient at high risk for developing severe disease. Discussed Paxlovid and the patient would like to proceed. Discussed symptomati c treatment and plenty of fluids. Discussed recommende d quarantine guidelines set by the CDC. Follow-up if significan t shortness of breath or worsening symptoms does develop. [id number] Cee Raymundo MD [facility] ([facility]) [address] [place] [address] [id number] 5 08/15/2023 09:11:35 08/15/2023 10:57:21 Hypercholesterolemia 10460814 E78.00 Essential hypertension 90372649 I10 Hypothyroidism 72482318 E03.9 Change in stool consistency 853628800 R19.5 [id number] Cee Raymundo MD [facility] ([facility]) [address] [place] [address] 03/05/2024 11:22:21 03/05/2024 15:06:15 Hypercholesterolemia 72775397 E78.00 Hypothyroidism 47799446 E03.9 Essential hypertension 27880893 I10 [id number] Cee Raymundo MD [facility] ([facility]) [address] [place] [address] 91457-848 5 05/17/2024 10:41:22 05/17/2024 13:20:22 Abdominal pain 89681176 R10.9 [id number] Lavon Charles MD [facility] ([facility]) [address] [place] [address] [id number] 5 09/06/2024 09:07:38 09/10/2024 08:02:35 Bacterial sinusitis 610233805 J32.9 B96.89 Likely bacterial sinusitis based on exam and history. discussed supportive care including OTC meds and sinus rinses. we will start abx. [id number] Cee Raymundo MD [facility] ([facility]) [address] [place] [address] [id number] 5 09/10/2024 14:34:03 10/06/2024 20:20:53 Essential hypertension 86261372 I10 Hypothyroidism 20043895 E03.9 Hypercholesterolemia 136 64186 E78.00 Lesion of skin of face 1957141026 06 L98.9 Health Concerns Section Related Observation LastModified by Organization Detai ls LastModified Time None Recorded Concern Status LastModified by Organization Details LastModified Time None Recorded Advance Directives Directive None Recorded Payers Insurance Date Sequence Insurance Name Policy Number Policy Dumont Covered Member ID Dumont Member ID Guarantor Name 09/09/2024 [place] - C-[facility] (MEDICARE) Burt Marinelli [id number] Burt Marinelli 10/13/2022 2 [employer] (MEDICARE SUPPLEMENT) Burt Marinelli [id number] Burt Marinelli 09/09/2024 1 [place] Burt Marinelli [id number] Burt Marinelli 09/06/2024 2 [place] [employer] - PLAN F (MEDICARE SUPPLEMENT) Burt Marinelli [id number] Burt Marinelli 09/06/2024 2 [facility] (MEDICARE SUPPLEMENT) Burt Margret Marinelli [id number] Burt Marinelli Notes Date Note Type Note Provider Name and Address Organization Details Recorded Time 4 text/html Hypertension IM/FMReported bypatient.Quality:here for check-up Severity:moderate; pt has not been checking his blood pressure at home Duration:HTN present for years Self Care:non-smoker Associated Symptoms:no shortness of breath; no fatigue; no palpitations; no headaches; no chest painHypothyroidReported bypatient.Reason for Visit:general check-up Duration:>12 months Associated Symptoms:no weakness; no fatigue; no edema; no chest pain; no palpitations Treatment:taking medication as prescribed Stool changes for the last 5 months. Gradually improving. Cee Raymundo MD [address] [place] [address], [phone], [facility], LSadiLSadiCSadi 08/15/2023 10:50:13 4 text/html Hypertension IM/FMReported bypatient.Quality:here for check-up Severity:moderate; pt has not been checking his blood pressure at home Duration:HTN present for years Self Care:non-smoker Associated Symptoms:no shortness of breath; no fatigue; no palpitations; no headaches; no chest painHypothyroidReported bypatient.Reason for Visit:general check-up Duration:>12 months Associated Symptoms:no weakness; no fatigue; no edema; no chest pain; no palpitations Treatment:taking medication as prescribed Cee Raymundo MD [address] [place] [address], [phone], [facility] 03/17/2024 11:47:22 5 text/html Abdominal PainReported bypatient.Location:[facility] Quality:bloating;stabbing Severity:moderate; pain level 2/10; better Duration:intermittent Onset/Timing:acute; started:; STARTED 2 WEEKS Alleviating Factors:eating Associated Symptoms:no fever; no chills; no blood in the urine; no heartburn; no shortness of breath; no nausea; no vomiting; no diarrhea; no constipation; normal stool; no blood in stool; normal appetite; no jaundice; no dysuria; no fatigue; no weight loss; no cough; no changes in stool; no urinary frequency; no orthopnea; no exertional dyspnea; no menstrual symptoms Cee Raymundo MD [address] [place] [address], [phone], [facility], [place] 06/11/2024 21:47:34 5 text/html walk in patientpatient is here today for sore throat, chest congestion, cough, and thick mucus that started 4 days ago Lavon Charles MD [address] [place] [address], [phone], [facility], [place] 09/07/2024 21:42:23 5 text/html Hypertension IM/FMReported bypatient.Quality:here for check-up Severity:moderate; pt has not been checking his blood pressure at home Duration:HTN present for years Self Care:non-smoker Associated Symptoms:no shortness of breath; no fatigue; no palpitations; no headaches; no chest painHypothyroidReported bypatient.Reason for Visit:general check-up Duration:>12 months Associated Symptoms:no weakness; no fatigue; no edema; no chest pain; no palpitations Treatment:taking medication as prescribedjr skin lesionReported bypatient.Location:forehead (left side) Severity:unchanged; mild Duration:2 weeks Timing:abrupt Associated Symptoms:no fever Cee Rayumndo MD [address] [place] [address], [phone], [facility] 10/06/2024 20:20:52
[2024-10-08 00:39] VITALS: BP 178/81; PULSE 58; RESP 17; O2SAT 98
--- NOTE | 2024-10-08 00:56 | XRR_ITS ---
PROCEDURE INFORMATION: Exam: XR Chest Exam date and time: 10/08/2024 1:04 AM Age: 79 years old Clinical indication: Other: Mandibular pain with hypertension; Prior surgery; Surgery date: 6+ months; Surgery type: Coronary stents; Additional info: Jaw pain HTN TECHNIQUE: Imaging protocol: Radiologic exam of the chest. Views: 1 view. COMPARISON: CR XR chest 1V portable [id number] 05/16/2021 6:54 PM FINDINGS: Lungs: Minimal dependent opacities may represent superimposition of shadows, atelectasis, inflammation, or infection. No consolidation. Pleural spaces: No pleural effusion. No pneumothorax. Heart/Mediastinum: The cardiomediastinal silhouette is stable in appearance. The skeleton is tortuous and atherosclerotic. Bones/joints: There are degenerative changes of the thoracic spine and shoulder joints. There are degenerative changes of the visualized lower cervical spine.. XR/XR chest 1V portable [id number] IMPRESSION: 1. Minimal dependent opacities may represent superimposition of shadows, atelectasis, inflammation, or infection in the appropriate clinical setting. 2. Additional chronic findings as detailed above 3. Otherwise, no evidence of acute radiographic findings in the chest.
--- NOTE | 2024-10-08 00:56 | CTR_ITS ---
PROCEDURE INFORMATION: Exam: CT Head Without Contrast Exam date and time: 10/08/2024 1:10 AM Age: 79 years old Clinical indication: Dizziness with hypertension; Additional info: Dizzy HTN TECHNIQUE: Imaging protocol: Computed tomography of the head without contrast. Radiation optimization: All CT scans at this facility use at least one of these dose optimization techniques: automated exposure control; mA and/or kV adjustment per patient size (includes targeted exams where dose is matched to clinical indication); or iterative reconstruction. COMPARISON: CT head wo con* [id number] 05/16/2021 7:58 PM RADIATION DOSE METRICS: Total DLP (mGy-cm): 1080.14 FINDINGS: Brain: No acute intra- or extra axial fluid collections are identified. The basal cisterns are patent. No mass effect or midline shift is seen. The dowling-white matter differentiation is normal. Periventricular hypoattenuation are nonspecific but likely the sequela of chronic small vessel ischemic disease. Chronic small foci of hypoattenuation in the bilateral basal ganglia and possibly in the posterior fossa and the periventricular white matter which are nonspecific however could represent the sequelae of chronic small vessel ischemic disease or prior small chronic infarcts. Cerebral ventricles: There is mild cerebral volume loss and ex vacuo dilatation of the ventricles.. Paranasal sinuses: There is mild paranasal sinus disease. Mastoid air cells: Minimal opacification is noted in the dependent left mastoid air cells. Orbital cavities: No acute CT findings are seen in the orbits. Bones: No acute calvarial fracture is identified. Soft tissues: No soft tissue abnormalities identified. Vasculature: There are atherosclerotic calcifications of the carotid siphons and the V4 segments of the vertebral arteries. CT/CT head wo con* [id number] IMPRESSION: No evidence of acute intracranial hemorrhage, mass effect, or midline shift.
--- NOTE | 2024-10-08 00:58 | ECG_ITS ---
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 Measurements Intervals [place] Rate: 63 P: 20 DE: 164 QRS: -53 QRSD: 136 T: 17 QT: 440 QTc: 453 Interpretive Statements SINUS RHYTHM WITH SINUS ARRHYTHMIA RIGHT BUNDLE BRANCH BLOCK [120+ ms QRS DURATION, UPRIGHT V1, 40+ ms S IN I/aVL/V4/V5/V6] LEFT ANTERIOR FASCICULAR BLOCK [QRS AXIS <= -45, QR IN I, RS IN II] Compared to ECG 05/16/2021 20:52:45 Sinus bradycardia no longer present Electronically Signed On 10-11-2024 09:09:52 CDT by Syd Chowdhury M.D. [id number]
--- NOTE | 2024-10-08 00:58 | ED_ITS ---
HPI - Dizziness 2 General: Chief Complaint: Dizziness Stated Complaint: BP High\ADB Pain Time Seen by Provider: 10/08/24 00:27 History of Present Illness: HPI Narrative: 79-year-old male patient has been dizzy on and off for 3 days. He states that his blood pressure has been high, and was extremely high this evening, 195 systolic. He took a nitroglycerin and it transiently improved his blood pressure. But, it came back up. He did this 2 more times. Blood pressure Spiking, and he continued to be dizzy, so he decided he needed to come in. He also complained of jaw pain when his blood pressure was high. He still has some mild jaw pain. He does not have overt chest pain. No significant shortness of breath. No vomiting. No diaphoresis. Related Data Home Medications ?Medication ?Instructions ?Recorded ?Confirmed diphenhydramine 25 1 tab PO .at bedtime PRN Ins omnia 08/22/19 08/14/24 mg-acetaminophen 500 mg tablet (Tylenol PM Extra Strength) methylcellulose (laxative) 500 mg 500 mg PO DAILY PRN Constipation 08/22/19 08/14/24 tablet (Citrucel) nitroglycerin 0.4 mg sublingual 0.4 mg sublingual Q5M PRN Chest 08/22/19 08/14/24 tablet (Nitrostat) Pain pantoprazole 20 mg tablet,delayed 20 mg PO DAILY 09/3008/14/24 release fluorouracil 5 % topical cream 1 applic topical BID PA N Rash 12/31/22 08/14/24 Previous Rx's ?Medication ?Instructions ?Recorded levothyroxine 75 mcg capsule 75 mcg PO DAILY 90 days # 90 caps 08/11/21 atorvastatin 80 mg tablet (Lipitor) 80 mg PO DAILY #90 tabs 02/21/24 isosorbide mononitrate 30 mg See Rx Instructions .Rout e 02/21/24 tablet,extended release 24 hr .COMPLEX #270 tabs ezetimibe 10 mg tablet See Rx Instructions .Route 1 .COMPLEX #90 tabs clopidogrel 75 mg tablet See Rx Instructions .Route 0 08/28/24 .COMPLEX #90 tabs olmesartan 20 mg tablet See Rx Instructions .Route 0 09/24/24 .COMPLEX #90 tabs amlodipine 10 mg tablet 10 mg PO DAILY #30 tabs 09/11 Allergies Allergy/AdvReac Type Severity Reaction Status Date / Time No Known Allergies Allergy Verified 10/07/24 22:49 PFSH ED 2 PFSH: Medical History Dvt femoral (deep venous thrombosis) HTN (hypertension) Erectile dysfunction Nocturia Testicular hypofunction Family history of prostate cancer Lower urinary tract symptoms (LUTS) Prinzmetal angina Hyperlipidemia CAD (coronary artery disease) Surgical History Hx of decompression of ulnar nerve History of orchiectomy Hx of knee surgery Family History Mother , at age 78- Cancer lung Father , at age 73 Congestive heart failure (CHF) Myocardial infarction (lateral wall) Social History Smoking and tobacco/nicotine status: never used tobacco/nicotine Alcohol intake: current Alcohol intake frequency: 0-2 Drinks per Day Alcohol type: beer Substance/Drug Use: never Marital status: Current occupational status: retired Physical Exam 2 Const: COMMON NORMALS: no acute distress GENERAL APPEARANCE: cooperative; not ill appearing and not frail appearing HENMT: COMMON NORMALS: normocephalic, atraumatic and Normal external nose present HEAD & SCALP: normocephalic and atraumatic FACE & SINUS: normal facial exam and face symmetric NOSE: Normal external nose present Eye: COMMON NORMALS: Equal, round and reactive pupils present and EOMs intact bilaterally PUPIL: Yes Equal, round and reactive pupils present Neck/C-Spine: GENERAL: Yes trachea midline Chest: CHEST: Yes Symmetrical chest wall rise Resp: COMMON NORMALS: normal respiratory effort, No retractions, No use of accessory muscles and clear to auscultation bilaterally AUSCULTATION: clear to auscultation bilaterally Cardio: COMMON NORMALS: regular rate and regular rhythm RATE: regular rate RHYTHM: regular rhythm GI: COMMON NORMALS: Normal to inspection, nondistended, normoactive bowel sounds present Extremity: COMMON NORMALS: no pedal edema Neuro: CHACHA COMA SCALE: document GCS findings [place] coma scale eye opening: Spontaneous [place] coma scale verbal response: Orientated [place] coma scale motor response: Obey commands [place] coma scale total score: 15 C RANIAL NERVES: Yes CN normal except as noted COORDINATION/BALANCE: f [id number] test normal and [id number]-[id number] test normal SPEECH: speech normal SENSORY EXAM: Yes extremities (intact) MOTOR EXAM: Pronator motor function not present COORDINATION: [id number] test normal and [id number] test normal Psych: COMMON NORMALS: speech normal SPEECH: Yes normal speech Skin: COMMON NORMALS: no rashes or lesions noted GENERAL SKIN EXAM: no rashes or lesions noted Course 2 Vital Signs: Vital signs: Vital Signs Temperature 97.7 F 10/07/24 22:40 Pulse Rate 60 10/08/24 02:49 Respiratory Rate 17 10/08/24 00:39 Blood Pressure 147/83 10/08/24 02:49 Pulse Oximetry 99 10/08/24 02:49 Oxygen Delivery Me thod Room Air 10/07/24 22:40 MDM - Dizziness Medical Decision Making 79-year-old male patient with jaw pain, dizziness, hypertension. Blood pressure is now improved. 147/83. Jaw pain is gone. His dizziness had improved as well even prior to medication. He was given 10 mg amlodipine. CBC and BMP are normal. Chest x-ray shows minimal dependent opacities, likely shadow or atelectasis. Head CT shows no acute findings. Laboratory is not on acute as well. The patient has had symptoms for hours. His first troponin is 10. TSH is normal. With improvement in his symptoms, and blood pressure, he will be discharged home. Amlodipine as an outpatient if pressure remains high. He will take them twice daily and follow-up with his doctor. Lab Data 10/08/24 00:32 10/08/24 00:32 Radiology Impressions Chest X-Ray 10/08/24 00:56 IMPRESSION: 1. Minimal dependent opacities may represent superimposition of shadows, atelectasis, inflammation, or infection in the appropriate clinical setting. 2. Additional chronic findings as detailed above 3. Otherwise, no evidence of acute radiographic findings in the chest. Head CT 10/08/24 00:56 IMPRESSION: No evidence of acute intracranial hemorrhage, mass effect, or midline shift. Laboratory Results WBC 6.14 10^3/uL (3.29-11.43) 10/08/24 00:32 RBC 4.41 10^6/uL (3.85-5.65) 10/08/24 00:32 Hgb 13.10 g/dL (11.27-16.99) 10/08/24 00:32 Hct 40.7 % (37-53) 10/08/24 00:32 MCV 92.3 fl (82-101) 10/08/24 00:32 MCH 29.7 pg (27-33) 10/08/24 00: MCHC 32.2 g/dL (30-55) 10/08/24 00:32 RDW 13.4 % (12.1-15.1) 10/08/24 00:32 Plt Count 174 10^3/cmm (157-399) 10/08/24 00:32 MPV 9.7 fL (7.4-10.4) 10/08/24 00:32 Neut % (Auto) 55.4 % 10/08/24 00:32 Lymph % (Auto) 27.5 % 10/08/24 00:32 [place] % (Auto) 13.7 % 10/08/24 00:32 Eos % (Auto) 2.9 % 10/08/24 00:32 Baso % (Auto) 0.3 % 10/08/24 00:32 Neut # (Auto) 3.40 10^3/uL (1.8-7.7) 10/08/24 00:32 Lymph # (Auto) 1.7 10^3/uL (0.8-4.8) 10/08/24 00:32 [place] # (Auto) 0.8 10^3/uL (0.2-0.9) 10/08/24 00:32 Eos # (Auto) 0.2 10^3/uL (0.0-0.8) 10/08/24 00:32 Baso # (Auto) 0.0 10^3/uL (0.0-0.1) 10/08/24 00:32 Nucleated RBC % (auto) 0 % 10/08/24 00:32 Nucleated RBCs # 0.0 /100WBC 10/08/24 00:32 Sodium 143 mmol/L (136-145) 10/08/24 00:32 Potassium 4.3 mmol/L (3.5-5.1) 10/08/24 00:32 Chloride 106 mmol/L (98-107) 10/08/24 00:32 Carbon Dioxide 26 mmol/L (22-29) 10/08/24 00:32 Anion Gap 15.3 (5-19) 10/08/24 00:32 BUN 18 mg/dL (8-23) 10/08/24 00:32 Creatinine 0.9 mg/dL (0.7-1.2) 10/08/24 00:32 GFR Calculation Not Reportable 10/08/24 00:32 Glucose 109 mg/dL (65-115) 10/08/24 00:32 Calculated Osmolality 298 mOsm/kg (285-295) H 10/08/24 00:32 Calcium 9.2 mg/dL (8.5-10.5) 10/08/24 00:32 Magnesium 2.3 mg/dL (1.7-2.3) 10/08/24 00:32 Total Bilirubin 0.3 mg/dL (0.15-1.2) 10/08/24 00: AST 19 U/L (0-40) 10/08/24 00: ALT 16 U/L (0-41) 10/08/24 00:32 Alkaline Phosphatase 78 U/L (40-130) 10/08/24 00:32 Troponin T Baseline 10 ng/L (0-15) 10/08/24 00:32 NT-Pro-B Natriuret Pep 232 pg/mL (0-450) 10/08/24 00:32 Total Protein 6.4 g/dL (6.6-8.7) L 10/08/24 00:32 Albumin 3.9 g/dL (3.5-5.2) 10/08/24 00:32 Globulin 2.5 g/dL (1.3-4.6) 10/08/24 00:32 TSH 3.59 uIU/mL (0.27-4.20) 10/08/24 00:32 Urine Color Yellow (Yellow) 10/08/24:34 Urine Appearance Clear (CLEAR) 10/08/24:34 Urine pH 5.5 (5-7) 10/08/24:34 Ur Specific [place] 1.023 (1.005-1.030) 10/08/24:34 Urine Protein Negative (Negative) 06/30/25 01:34 Urine Glucose (UA) Negative (Normal) 10/08/24 01:34 Urine Ketones Trace (Negative) 10/08/24 01:34 Urine Blood 1+ (Negative) A 10/08/24 01:34 Urine Nitrate Negative (Negative) 10/08/24 01:34 Urine Bilirubin Negative (Negative) 10/08/24 01:34 Urine Urobilinogen 1.0 mg/dL (Negative) 10/08/24 01:34 Ur Leukocyte Esterase Negative (Negative) 10/08/24 01:34 Urine RBC 11-20 /hpf (0-2) H 10/08/24 01:34 Urine WBC 0-5 /hpf (0-5) 10/08/24 01:34 Ur Squamous Epith Cells 0-5 /hpf (0-5) 10/08/24 01:34 Amorphous Sediment Not Reportable 10/08/24 01:34 Urine Bacteria None seen /hpf (NONE) 10/08/24 01:34 Hyaline Casts 0.40 /lpf 10/08/24 01:34 All radiology interpretation(s) finalized by discharge Discharge Plan Discharge Patient Disposition: Home Clinical Impression: Hypertensive urgency Condition: Stable Prescriptions: New amlodipine 10 mg tablet 10 mg PO DAILY Qty: 30 0RF No Action nitroglycerin [Nitrostat] 0.4 mg tablet, sublingual 0.4 mg SUBLINGUAL Q5M PRN (Reason: Chest Pain) Rx Instructions: do not exceed 3 doses per episode diphenhydramine-acetaminophen [Tylenol PM Extra Strength] 25-500 mg tablet 1 tab PO .at bedtime PRN (Reason: Insomnia) Rx Instructions: administer while awake Citrucel 500 mg tablet 500 mg PO DAILY PRN (Reason: Constipation) pantoprazole 20 mg tablet,delayed release (DR/EC) 20 mg PO DAILY atorvastatin [Lipitor] 80 mg tablet 80 mg PO DAILY Qty: 90 4RF isosorbide mononitrate 30 mg tablet extended release 24 hr See Rx Instructions .ROUTE .COMPLEX Qty: 270 4RF Dose Instruction: TAKE 1 TABLET BY MOUTH THREE TIMES DAILY Rx Instructions: TAKE 1 TABLET BY MOUTH THREE TIMES DAILY levothyroxine 75 mcg capsule 75 mcg PO DAILY 90 Days Qty: 90 0RF ezetimibe 10 mg tablet See Rx Instructions .ROUTE .COMPLEX Qty: 90 3RF Dose Instruction: TAKE 1 TABLET BY MOUTH EVERY DAY Rx Instructions: TAKE 1 TABLET BY MOUTH EVERY DAY clopidogrel 75 mg tablet See Rx Instructions .ROUTE .COMPLEX Qty: 90 3RF Dose Instruction: TAKE 1 TABLET BY MOUTH EVERY DAY Rx Instructions: TAKE 1 TABLET BY MOUTH EVERY DAY olmesartan 20 mg tablet See Rx Instructions .ROUTE .COMPLEX Qty: 90 4RF Dose Instruction: TAKE 1 TABLET BY MOUTH EVERY DAY Rx Instructions: TAKE 1 TABLET BY MOUTH EVERY DAY fluorouracil 5 % Cream 1 applic TOPICAL BID PRN (Reason: Rash) Discharge Orders: Discharge ED (Routine); Ordered 10/08/24 Ordered By: Adolfo Cabrera Referrals: Carl Palacios MD [Primary Care Provider, Family Practice] - 1-3 days Patient Instructions: Hypertension (ED), Opioid Safety, Pain Management, Patient Portal & Yasir Instructions Activity Restrictions/Additional Instructions: Check your blood pressure twice daily. Record numbers for your doctor. Call tomorrow for an outpatient follow-up appointment. If your blood pressure remains greater than 150/90, you may take the medication prescribed. Return for chest discomfort, shortness of breath, worsening dizziness, vomiting, other concerning symptoms despite treatment. Print Language: Sammarinese Coding Level of Care Code ED Curriculum Developer for Luis Enrique Grissom
[2024-10-08 01:00] VITALS: BP 165/87; PULSE 58; O2SAT 98
[2024-10-08 01:08] LABS: Basophils % 0.3 %; Eosinophils # 0.2 10^3/uL (0.0-0.8); Eosinophils % 2.9 %; Hematocrit 40.7 % (37-53); Lymphocytes # 1.7 10^3/uL (0.8-4.8); Lymphocytes % 27.5 %; Mean Corpuscular HGB Conc 32.2 g/dL (30-55); Mean Corpuscular Hemoglobin 29.7 pg (27-33); Mean Corpuscular Volume 92.3 fl (82-101); Mean Platelet Volume 9.7 fL (7.4-10.4); Monocytes # 0.8 10^3/uL (0.2-0.9); Monocytes % 13.7 %; Neutrophils % 55.4 %; Nucleated Red Blood Cells % 0 %; Platelet Count 174 10^3/cmm (157-399); Red Blood Count 4.41 10^6/uL (3.85-5.65); Red Cell Distribution Width 13.4 % (12.1-15.1); White Blood Count 6.14 10^3/uL (3.29-11.43)
[2024-10-08] MEDS: amlodipine 10 mg Tablet PO (01:24)
[2024-10-08 01:26] LABS: Troponin(5th) Baseline 10 ng/L (0-15)
[2024-10-08 01:30] VITALS: BP 153/86; PULSE 58; O2SAT 98
[2024-10-08 01:34] LABS: Alanine Aminotransferase 16 U/L (0-41); Albumin Level 3.9 g/dL (3.5-5.2); Alkaline Phosphatase 78 U/L (40-130); Anion Gap 15.3 (5-19); Aspartate Amino Transferase 19 U/L (0-40); Blood Urea Nitrogen 18 mg/dL (8-23); Calcium 9.2 mg/dL (8.5-10.5); Carbon Dioxide 26 mmol/L (22-29); Chloride 106 mmol/L (98-107); Globulin 2.5 g/dL (1.3-4.6); Glucose 109 mg/dL (65-115); Magnesium 2.3 mg/dL (1.7-2.3); NT Pro B Type Natriuretic Pept 232 pg/mL (0-450); Osmolality Calculated 298 mOsm/kg (285-295); Potassium 4.3 mmol/L (3.5-5.1); Sodium 143 mmol/L (136-145); Thyroid Stimulating Hormone 3.59 uIU/mL (0.27-4.20); Total Bilirubin 0.3 mg/dL (0.15-1.2); Total Protein 6.4 g/dL (6.6-8.7)
[2024-10-08 01:53] LABS: Bilirubin Urine Negative (Negative); Blood Urine 1+ (Negative); Glucose Urine UA Negative (Normal); Ketones Urine Trace (Negative); Leukocyte Esterase Urine Negative (Negative); Nitrate Urine Negative (Negative); Protein Urine Negative (Negative); Specific Gravity, Urine 1.023 (1.005-1.030); Urine Appearance Clear (CLEAR); Urine Color Yellow (Yellow); pH Urine 5.5 (5-7)
[2024-10-08 01:57] LABS: Add Urine Microscopic? YES; Bacteria Urine None Seen /hpf; Squamous Epithelial Cell Urine 0-5 /hpf (0-5); WBC Urine 0-5 /hpf (0-5)
[2024-10-08 02:49] VITALS: BP 147/83; PULSE 60; O2SAT 99
== END 2024-10-08 02:50 | disposition home or self-care (01) ==
PROVIDERS: Emergency Provider Emergency Medicine; PCP Family Medicine
DX: I16.0 Hypertensive urgency (principal); Z79.02 Long term (current) use of antithrombotics/antiplatelets; I25.10 Atherosclerotic heart disease of native coronary artery without angina pectoris; E78.5 Hyperlipidemia, unspecified; I10 Essential (primary) hypertension
CPT/HCPCS: 36415; 70450; 71045; 80053; 81001; 83735; 83880; 84443; 84484; 85025; 93005; 99285; J9999

== ENCOUNTER 2025-02-01 09:06 | Outpatient (CLI) | payer OTHER, SELFPAY ==
--- NOTE | 2025-02-01 09:09 | USCV_ITS ---
Burt Marinelli Age: 79 Gender: M : 1945 Exam Date: 02/01/2025 09:55 Ordering Phys: Carl Nguyen Technologist: [place] [facility] [place]: cp sob BP: / HR: 61 Rhythm: Sinus Technical Quality: Adequate MEASUREMENTS (Male / Female) Normal Values 2D ECHO LV Diastolic Diameter PLAX 3.6 cm 4.2 - 5.9 / 3.9 - 5.3 cm IVS Diastolic Thickness 1.4 cm 0.6 - 1.0 / 0.6 - 0.9 cm IVS Systolic Thickness 2.3 cm LVPW Diastolic Thickness 1.7 cm 0.6 - 1.0 / 0.6 - 0.9 cm LVPW Systolic Thickness 2.2 cm LVOT Diameter 2.3 cm LV Ejection Fraction 2D Teich 63.6 % LV Ejection Fraction MOD 4C 52.2 % LV Ejection Fraction MOD 2C 60.2 % LV Ejection Fraction 2C AL 61.8 % LA Diameter 4.0 cm RA Systolic Volume 4C AL 50.4 ml RA Systolic Volume 4C MOD 48.3 ml Aorta at Sinotubular Diameter 3.0 cm IVC Diameter 1.3 cm M-MODE LA Ao Ratio MM 1.4 AV Cusp Separation MM 2.1 cm DOPPLER AV Peak Velocity 148.0 cm/s LVOT Peak Velocity 101.0 cm/s AV Area Cont Eq vti 3.2 cm squared AV Area Cont Eq pk 2.9 cm squared MV Peak Velocity 86.0 cm/s MV Area PHT 2.6 cm squared Mitral E to A Ratio 0.7 TV Peak Velocity 201.5 cm/s TR Peak Velocity 224.0 cm/s TR Peak Gradient 20.1 mmHg PV Peak Velocity 124.0 cm/s FINDINGS Left Ventricle Normal left ventricular size, systolic function and wall thickness, with no regional wall motion abnormalities. Left ventricular ejection fraction is estimated at 60 %. Grade I/IV diastolic dysfunction (abnormal relaxation filling pattern), normal to mildly elevated filling pressures. Right Ventricle Normal right ventricular size and systolic function. Right Atrium Normal right atrial size. Left Atrium Normal left atrial size. IA Septum Normal appearance of the interatrial septum. Mitral Valve Normal mitral valve structure. No mitral valve stenosis or regurgitation. Aortic Valve Normal aortic valve structure. No aortic valve stenosis or regurgitation. Tricuspid Valve Normal tricuspid valve structure. No tricuspid valve stenosis or regurgitation. Normal pulmonary pressure. Pulmonic Valve Normal pulmonic valve structure. No pulmonic valve stenosis or regurgitation. Pericardium No pericardial effusion. Aorta Normal diameter of the aortic root and ascending thoracic aorta. IVC Normal IVC diameter. CONCLUSIONS Normal left ventricular size, systolic function and wall thickness, with no regional wall motion abnormalities. Left ventricular ejection fraction is estimated at 60 %. Grade I/IV diastolic dysfunction (abnormal relaxation filling pattern), normal to mildly elevated filling pressures. There is no pericardial effusion. No significant valvular abnormalities. Right atrial pressure is around 5 mm of mercury. Emma Brizuela MD (Electronically Signed) Final Date: 10 February 2025 18:18 S
[2025-02-01 09:57] LABS: Free T4 Free Thyroxine 1.54 ng/dL (0.82-1.77); Thyroid Stimulating Hormone 1.75 uIU/mL (0.27-4.20)
== END 2025-02-01 09:07 | disposition home or self-care (01) ==
LOC: RAD 09:06
PROVIDERS: PCP Family Medicine; Visit Provider Chiropractor
DX: I25.10 Atherosclerotic heart disease of native coronary artery without angina pectoris (principal); E03.9 Hypothyroidism, unspecified; R93.1 Abnormal findings on diagnostic imaging of heart and coronary circulation
CPT/HCPCS: 36415; 84439; 84443; 84481; 93306

== ENCOUNTER → 2025-02-06 13:56 | Outpatient (BNVA) | payer MEDICARE, OTHER, SELFPAY | PROVIDERS: PCP Family Medicine; Visit Provider Internal Medicine Cardiovascular Disease | DX: I25.10 Atherosclerotic heart disease of native coronary artery without angina pectoris (principal); I10 Essential (primary) hypertension; E78.5 Hyperlipidemia, unspecified | CPT/HCPCS: 99214 ==

== ENCOUNTER 2025-02-11 12:33 | Outpatient (CLI) | payer MEDICARE, OTHER, SELFPAY ==
--- NOTE | 2025-02-11 12:39 | CT_ITS ---
WS: [id number] CT ABDOMEN PELVIS TECHNIQUE: Contrast-enhanced CT of the abdomen and pelvis with coronal and sagittal reformatted images. CLINICAL INFORMATION: ABDOMINAL PAIN COMPARISON: CT 2017 DLP: 425.[address] scans at [facility] use at least one of these dose optimization techniques: automated exposure control; mA and/or kV adjustment per patient size (includes targeted exams where dose is matched to clinical indication); or iterative reconstruction. FINDINGS: Lung bases are well aerated. Normal liver and spleen. Normal portal vein and splenic vein. Normal pancreatic parenchymal enhancement. Normal GE junction. Aortic calcification. Adrenal glands are normal. No hydronephrosis. Normal renal parenchymal enhancement. Tiny RIGHT renal cysts. Peripelvic LEFT greater than RIGHT renal cysts. Normal pancreatic parenchymal enhancement. Normal caliber abdominal aorta. Aortic calcification. Enlarged prostate measuring 4.5 cm. Recommend correlation PSA. Sigmoid diverticulosis. No evidence of acute diverticulitis. Tiny fat-containing umbilical hernia. Transverse colon constipation. Mild lumbar curve. CT/CT abdomen pelvis w con* [id number] IMPRESSION: 1. Enlarged prostate measuring 4.5 cm. Recommend correlation PSA. 2. No hydronephrosis in either kidney. Tiny RIGHT renal cysts. Peripelvic ora l cysts. 3. Sigmoid diverticulosis. No evidence of acute diverticulitis. 4. Transverse colon constipation. 5. No other acute findings in the abdomen or pelvis.
[2025-02-11] MEDS: iohexol 350 mg/mL 500 mL Btl (per mL) IV (13:02)
== END 2025-02-11 12:34 | disposition home or self-care (01) ==
LOC: RAD 12:34
PROVIDERS: PCP Family Medicine; Visit Provider Family Medicine
DX: K57.30 Diverticulosis of large intestine without perforation or abscess without bleeding (principal); N40.0 Benign prostatic hyperplasia without lower urinary tract symptoms; N28.1 Cyst of kidney, acquired; K59.00 Constipation, unspecified
CPT/HCPCS: 74177